=== PATIENT | female | born 1990 | race Caucasian/White ===

== ENCOUNTER 2022-08-18 08:10 | Emergency (ER) | payer BC ==
--- OUTSIDE RECORDS SUMMARY | 2022-08-18 08:15 | XMS REPORT | Continuity of Care Document ---
:1990 Author Organization [facility] t Address [address] [facility] [address] [place] [address] Care Team Providers Name Role Phone Billy Harvey DO Primary Care Physician Melvin George Attending Clinician Unavailable Jenna Duarte MD Attending Clinician [phone] Wes_Joni Attending Clinician Unavailable JENNA DUARTE Attending Clinician Unavailable Doctor Unassigned, Regal Attending Clinician Unavailable Ashley Floyd Attending Clinician Unavailable Tita Perez RN Attending Clinician Unavailable Dianne Canas MD Attending Clinician JENNA DUARTE Attending Clinician Unavailable NESS GUTIERREZ Attending Clinician Unavailable Billy Harvey Admitting Clinician Unavailable Melvin George Admitting Clinician Unavailable Pihazel_Joni Admitting Clinician Unavailable Ashley Floyd Admitting Clinician Unavailable NESS GUTIERREZ Admitting Clinician Unavailable Payers Payer Name Policy Type Policy Number Effective Date Expiration Date [id number] 2020 00:[place]00 [place] [id number] 2020 00:00:00 CIGNA III [id number] 2017 00:00:00 Problems Condition Condition Condition Status Onset Resolution Last Treating Co mments Source Name Details Category Date Date Treatment Clinician Date 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 0-03 ity of cell cell 00:00: [place] changes of changes of 00 Me dical undetermin undetermin Br anch ed ed significan significan ce (ASCUS) ce (ASCUS) on on cervical cervical cytology cytology with with negative negative high risk high risk human human papilloma papilloma virus virus (HPV) test (HPV) test result result Obstructiv Obstructiv Problem Active V illage e sleep e Sleep 7-15 Family apnea Apnea 00:00: Practic syndrome Syndrome 00 e Headache Headache Problem Active [place] ge 6-16 Family 00:00: Practic 00 e Snoring Snoring Problem Active [place] 6-16 Family 00:00: Practic 00 e Generalize Generalize Problem Active V illage d anxiety d Anxiety 16 Fami ly disorder Disorder 00:00: Practi c 00 e EKG: EKG: Problem Active [place] supraventr Supraventr 7-02 Fa marcus icular icular 00:00: Practic arrhythmia Arrhythmia 00 e Anxiety Anxiety Problem Active [place] attack Attack 7-02 Family 00:00: Practic 00 e SVT SVT Disease Recurre [facility] (supravent (supravent nce 3-07 Miguelina kes ricular ricular 00:00: Medical tachycardi tachycardi 00 Ce nter a) a) FHx: SVT FHx: SVT Disease Active 2016-03 [facility] di (supravent (supravent 1-20 st ricular ricular 00:00: Hospita tachycardi tachycardi 00 l a) a) Anxiety Anxiety Disease Active Methodi and and 4-10 st depression depression 00:00: Ho spita 00 l Weight Weight Disease Active [facility] gain gain 4-10 st 00:00: Hospita 00 l Allergen Allergen Problem Active 2015-03 [place] ge specific Specific 0-10 Family antibody Antibody 00:00: Practi c measuremen Measuremen 00 e t t Acute Acute Disease Active Univers sinusitis sinusitis 1-26 ity of 00:00: [place] 00 Medical Branch Anxiety Anxiety Disease Active Univers 7- ity of 00:00: [place] 00 Medical Branch Hyperventi Hyperventi Disease Active U nivers lation lation 7-02 ity of 00:00: Medical Branch Symptomati Symptomati Disease Active U nivers c c 6-28 ity of tonsillar tonsillar 00:00[place] crypt crypt 00 Medical [facility] Allergic Allergic Disease Active Overview: Un devin rhinitis rhinitis Formattin ity of g of this [place] note Medical might be Branch different from the original. 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, Disorder, predominan Predominan tly tly inattentiv Inattentiv e type e Type Allergies, Adverse Reactions, Alerts Allergy Allergy Status Severity Reaction(s) Onset Inactive Treating Comm ents Source Name Type Date Date Clinician No Known DA Active U [facility] Allergie 3-30 Clear s 00:00: Rubi 00 [place] Allergen Drug Active [facility]uffy [facility] Allergy 3-07 Nose, [facility] Extracts 00:00: Sneezing, Medic al 00 [facility] Eyes Dog Hair Drug Active Stuffy [facility] Standard Allergy 3-07 Nose, [facility] ized 00:00: Sneezing, Medical Allergen 00 [facility]chy Center ic Eyes Extract No Known DA Active U [facility] Allergie 1-23 [place] s 00:00: d 00 [facility] Pseudoep Allergy Active Mild Palpitations V illage hedrine to 1-23 Family substanc 00:00: Practic e 00 e No Known DA Active U [facility] Drug 9-18 [place] Allergie 00:00: d s 00 [facility] Center NO KNOWN Drug Active Univers ALLERGIE Class ity of S [place] Medical Branch Family History Family Member Diagnosis Comments Start Date Stop Date Source Natural father Diabetes [facility] Natural father Hy[facility] Maternal grandfather Heart [facility] Natural mother Diabetes [facility] Natural mother Hypertension [facility] Paternal grandmother Breast cancer [facility] Social History Social Habit Start Date Stop Date Quantity Comments Source Gender identity 2019-09-18 Identifies as Method ist 17:28:53 female gender Hospital (finding) Sexual orientation 2019-09-18 Heterosexual Meth odist 17:28:53 (finding) Hospital History SDOH [facility] Alcohol Frequency [facility] History SDOH [facility] Alcohol Std Drinks [facility] History SDOH [facility] Alcohol Binge Medical Luis A ter Exposure to 2021-10-31 2021-11-10 Not sure University of SARS-CoV-2 (event) 00:00:00 13:01:00 [facility] History of Social 2019-09-19 2019-09-[address] function 00:00:00 00:00:00 Hospital Alcohol intake 2018-05-18 2018-05-18 Current drinker of [facility] 00:[facility]:00 alcohol (finding) [facility] Center Tobacco use and 2018-05-17 2018-05-[address] Miguelina kes exposure 00:00:00 00:00:00 [facility] Center Alcohol Comment 2018-05-17 2018-05-[address] [facility] 00[facility]00:00 00:00:00 [facility] Center Sex Assigned At [address] Miguelina kes 00:00:00 00:00:00 [facility] Center Smoking Status Start Date Stop Date Source Never Smoker [place] [facility] Medications Ordered Filled Start Stop Current Ordering Indication Dosage Frequency Signature Comments Components Source Medication Medication Date Date Medication? Clinician (SIG) Name Name hydrOXYzine Yes 25mg Take 25 mg Univers 25 mg 8-31 by mouth ity of tablet 13:16: every 12 [place] [address] (twelve) Medical hours. Branch diclofenac Yes 75mg Take 75 mg U nivers 75 mg EC 8-31 by mouth. ity of tablet 13:16: [address] sertraline Yes Take by [facility] ers HCl (ZOLOFT 8-31 mouth. ity of ORAL) 13:16: [address] CLONAZEPAM Yes Take by [employer] ers ORAL 8-31 mouth. ity of 13:16: [address] hydrOXYzine Yes 25mg Take 25 mg Univers 25 mg 8-31 by mouth ity of tablet 13:16: every 12 [place] [address] (twelve) Medical hours. Branch diclofenac Yes 75mg Take 75 mg U nivers 75 mg EC 8-31 by mouth. ity of tablet 13:16: [address] sertraline Yes Take by [employer] ers HCl (ZOLOFT 8-31 mouth. ity of ORAL) 13:16: [address] Branch CLONAZEPAM Yes Take by Univ ers ORAL 8-31 mouth. ity of 13:16: [address] Branch betamethaso betamethaso No betamethas [place] ne acetate ne acetate 6-16 one Fam marilou and sodium and sodium 14:16: acetate Practic phos 6 phos 6 00 and sodium e mg/mL mg/mL phos 6 suspension suspension mg/mL for for suspension injectionTa injectionTa for ke 1.5 mL ke 1.5 mL injectionT by by sharon 1.5 mL injection injection by route. route. injection route. naproxen Yes 500mg Take 1 Univer s 500 mg 1-10 tablet by ity of tablet 00:00: mouth 3 [place] [address] (three) Medical times Branch daily as needed for Pain (scale 4-6). naproxen Yes 500mg Take 1 Univer s 500 mg 1-10 tablet by ity of tablet 00:00: mouth 3 [place] (three) Medical times Branch daily as needed for Pain (scale 4-6). benzonatate Yes TAKE 1 TO U nivers 100 mg 7-29 2 CAPSULES ity of capsule 00:00: BY MOUTH [place] [address] EVERY 8 Medical HOURS Branch NEEDED FOR COUGHING bromphenira Yes TAKE 10 ML Univers mine-pseudo 7-29 BY MOUTH ity of ephedrine-D 00:00: EVERY 4 [place] as M 2-30-10 00 HOURS Medica l mg/5 mL NEEDED, Branch syrup NOT TO EXCEED 6 DOSES A DAY. benzonatate Yes TAKE 1 TO U nivers 100 mg 7-29 2 CAPSULES ity of capsule 00:00: BY MOUTH [place] [address] EVERY 8 Medical HOURS Branch NEEDED FOR COUGHING bromphenira 0 Yes TAKE 10 ML Univers mine-pseudo 7-29 BY MOUTH ity of ephedrine-D 00:00: EVERY 4 [place] as M 2-30-10 00 HOURS Medica l mg/5 mL NEEDED, Branch syrup NOT TO EXCEED 6 DOSES A DAY. levothyroxi Yes Univer s ne 75 mcg 7-20 ity of tablet 00:00: [place] [address] Medical Branch levothyroxi 2021-0 Yes Univer s ne 75 mcg 7-20 ity of tablet 00:00: [place] 00 Medical Branch metFORMIN 0 Yes TAKE 2 Univer s 500 mg 6-09 TABLETS BY ity of tablet 00:00: MOUTH [place] 00 EVERY DAY Medical AND Branch CONTINUE UNTIL 12 WEEKS OF metFORMIN 0 Yes TAKE 2 Univer s 500 mg 6-09 TABLETS BY ity of tablet 00:00: MOUTH [place] 00 EVERY DAY Medical AND Branch CONTINUE UNTIL 12 WEEKS OF doxycycline Yes TAKE ONE Un devin monohydrate 6-08 (1) TABLET it y of 100 mg 00:00: BY MOUTH [place] tablet 00 TWICE Medical DAILY FOR Branch 7 DAYS, BEGIN WITH PERIOD medroxyPROG Yes TAKE ONE Un devin ESTERone 10 6-08 (1) TABLET it y of mg tablet 00:00: [place]OUTH [place] 00 DAILY FOR Medical 10 DAYS Branch doxycycline Yes TAKE ONE Un devin monohydrate 6-08 (1) TABLET it y of 100 mg 00:00: BY MOUTH [place] tablet 00 TWICE Medical DAILY FOR Branch 7 DAYS, BEGIN WITH PERIOD medroxyPROG Yes TAKE ONE Un devin ESTERone 10 6-08 (1) TABLET it y of mg tablet 00:00: BY MOUTH [place] 00 DAILY FOR Medical 10 DAYS Branch cetirizine Yes 10mg Take 10 mg U nivers (ZYRTEC) 10 5-07 by mouth ity of mg tablet 13:22: daily. [address] Branch omeprazole Yes Take by [facility] magnesium 5-07 mouth. ity of (PRILOSEC) 13:22: [place] [address] Branch cetirizine Yes 10mg Take 10 mg U nivers (ZYRTEC) 10 5-07 by mouth ity of mg tablet 13:22: daily. [address] Branch omeprazole Yes Take by [facility] magnesium 5-07 mouth. ity of (PRILOSEC) 13:22: [place] [address] Branch valACYclovi Yes TAKE TWO Un devin r 1 gram 4-30 TABLETS ity of tablet 00:00: 2GM BY [place] 00 MOUTH Medical EVERY 12 Branch HOURS X1 DAY valACYclovi Yes TAKE TWO Un devin r 1 gram 4-30 TABLETS ity of tablet 00:00: 2GM BY [place] [address] MOUTH Medical EVERY 12 Branch HOURS X1 DAY norgestimat 2020-0 Yes [id number] Take one Methodi e-ethinyl 7-[address] estradioL 00:00: mouth Hospita (ORTHO-CYCL 00 daily, l EN) 0.25-35 skip mg-mcg per placcebo tablet row months 1-2 then take full pack on month 3 norgestimat 2019-0 Yes [id number] Take one Methodi e-ethinyl 7-[address] estradioL 00:00: mouth Hospita (ORTHO-CYCL 00 daily, l EN) 0.25-35 skip mg-mcg per placcebo tablet row months 1-2 then take full pack on month 3 norgestimat 2020-0 Yes [id number] Take one Methodi e-ethinyl 7-[address] estradioL 00:00: mouth Hospita (ORTHO-CYCL 00 daily, l EN) 0.25-35 skip mg-mcg per placcebo tablet row months 1-2 then take full pack on month 3 norgestimat 2020-0 Yes [id number] Take one Methodi e-ethinyl 7-[address] estradioL 00:00: mouth Hospita (ORTHO-CYCL 00 daily, l EN) 0.25-35 skip mg-mcg per placcebo tablet row months 1-2 then take full pack on month 3 naproxen 2019-0 Yes [id number] 250mg Q.[id number] Take 1 Methodi (NAPROSYN) 4-14 [id number] tablet s t 250 MG 00:00: 3D (250 mg Hospita tablet 00 total) by l mouth 3 (three) times a day with meals. naproxen 2020-0 Yes [id number] 250mg Q.[id number] Take 1 Methodi (NAPROSYN) 4-14 [id number] tablet s t 250 MG 00:00: 3D (250 mg Hospita tablet 00 total) by l mouth 3 (three) times a day with meals. naproxen 2020-0 Yes [id number] 250mg Q.[id number] Take 1 Methodi (NAPROSYN) 4-14 [id number] tablet s t 250 MG 00:00: 3D (250 mg Hospita tablet 00 total) by l mouth 3 (three) times a day with meals. naproxen 2019-0 Yes [id number] 250mg Q.[id number] Take 1 Methodi (NAPROSYN) 4-14 [id number] tablet s t 250 MG 00:00: 3D (250 mg Hospita tablet 00 total) by l mouth 3 (three) times a day with meals. levonorgest 2019-0 Yes 1{tbl} QD Take [address] rel-ethinyl 3-07 tablet by Marck es estradiol 20:37: mouth Medical (DAYSEE) 42 daily. Center 0.15 mg-30 mcg (84)/10 mcg (7) tablet diclofenac 2018-0 Yes 75mg Q.[id number] Take [address] (VOLTAREN) 3-07 [id number] by mouth 3 [facility] 75 MG EC 20:37: 3D (three) Medica l tablet 42 times Center daily Pt usually takes just once daily . cetirizine Yes 10mg QD Take [address] (ZYRTEC) 10 3-07 by mouth Luke s MG tablet 20:37: daily. Medica l 42 Center levonorgest 2018-0 Yes 1{tbl} QD Take [address] rel-ethinyl 3-07 tablet by Marck es estradiol 20:37: mouth Medical (DAYSEE) 42 daily. Center 0.15 mg-30 mcg (84)/10 mcg (7) tablet diclofenac 2018-0 Yes 75mg Q.[id number] Take [address] (VOLTAREN) 3-07 [id number] by mouth 3 [facility] 75 MG EC 20:37: 3D (three) Medica l tablet 42 times Center daily Pt usually takes just once daily . cetirizine 2019-0 Yes 10mg QD Take [address] (ZYRTEC) 10 3-07 by mouth Luke s MG tablet 20:37: daily. Medica l 42 Center levonorgest 2019-0 Yes 1{tbl} QD Take [address] rel-ethinyl 3-07 tablet by Marck es estradiol 20:37: mouth Medical (DAYSEE) 42 daily. Center 0.15 mg-30 mcg (84)/10 mcg (7) tablet diclofenac 2019-0 Yes 75mg Q.[id number] Take [address] (VOLTAREN) 3-07 [id number] by mouth 3 [facility] 75 MG EC 20:37: 3D (three) Medica l tablet 42 times Center daily Pt usually takes just once daily . cetirizine Yes 10mg QD Take [address] (ZYRTEC) 10 3-07 by mouth Luke s MG tablet 20:37: daily. [address] levonorgest Yes 1{tbl} QD Take [address] rel-ethinyl 3-07 tablet by Marck es estradiol 20:37: mouth Medical (DAYSEE) 42 daily. [place] 0.15 mg-30 mcg (84)/10 mcg (7) tablet diclofenac Yes 75mg Q.[id number] Take [address] (VOLTAREN) 3-07 [id number] by mouth 3 [facility] 75 MG EC 20:37: 3D (three) Medica l tablet 42 times Center daily Pt usually takes just once daily . cetirizine Yes 10mg QD Take [address] (ZYRTEC) 10 3-07 by mouth Luke s MG tablet 20:37: daily. [address] ondansetron Yes [id number] 4mg Take 1 Univers (ZOFRAN) 4 1-22 tablet by ity of mg tablet 00:00: mouth [place] 00 every 8 Medical (eight) Branch hours as needed for Nausea and Vomiting (N/V). ondansetron Yes [id number] 4mg Take 1 Univers (ZOFRAN) 4 1-22 tablet by ity of mg tablet 00:00: mouth [place] 00 every 8 Medical (eight) Branch hours as needed for Nausea and Vomiting (N/V). fluticasone Yes Method i (FLONASE) 05-27 00:00: Hospita mcg/actuati 00 l on nasal spray fluticasone Yes Method i (FLONASE) 05-27 00:00: Hospita mcg/actuati 00 l on nasal spray fluticasone Yes Method i (FLONASE) 05-27 00:00: Hospita mcg/actuati 00 l on nasal spray fluticasone Yes Method i (FLONASE) 3-17 st 50 00:00: Hospita mcg/actuati 00 l on nasal spray fluticasone Yes [id number] 2{spray Use 2 Univers (FLONASE) 1-26 } Sprays in ity o f 50 00:00: each [place] mcg/actuati 00 nostril Medic al on nasal daily. Branch spray fluticasone Yes [id number] 2{spray Use 2 Univers (FLONASE) 1-26 } Sprays in ity o f 50 00:00: each [place] mcg/actuati 00 nostril Medic al on nasal daily. Branch spray valACYclovi Yes 500mg Take 1 Tab Univers r (VALTREX) 1-03 by mouth 2 it y of 500 mg 00:00: (two) [place] tablet 00 times Medical daily. Branch valACYclovi Yes 500mg Take 1 Tab Univers r (VALTREX) 1-03 by mouth 2 it y of 500 mg 00:00: (two) [place] tablet 00 times Medical daily. [place] betamethaso betamethaso No 1.5mL betamethas [facility] ne acetate ne acetate one Fam marilou and sodium and sodium acetate Practic phos 6 phos 6 and sodium e mg/mL mg/mL phos 6 suspension suspension mg/mL for for suspension injection injection for Take 1.5 mL Take 1.5 mL injection by by Take 1.5 injection injection mL by route. route. injection route. diphenhydra diphenhydra No 1capsul Q4H diphenhydr [facility] mine 25 mg mine 25 mg e(s) amine 25 Family capsule capsule mg capsule Pra ctic Take 1 Take 1 Take 1 e capsule capsule capsule every 4 every 4 every 4 hours by hours by hours by oral route. oral route. oral route. Klonopin 1 Klonopin 1 No 1 Q1D Klonopin 1 [place] mg tablet mg tablet mg tablet Family Take 1 Take 1 Take 1 Practic tablet tablet tablet e every day every day every day by oral by oral by oral route as route as route as needed. needed. needed. levothyroxi levothyroxi No 1 Q1D levothyrox [facility] ne 75 mcg ne 75 mcg ine 75 mcg Family tablet Take tablet Take tablet Practic 1 tablet 1 tablet Take 1 e every day every day tablet by oral by oral every day route. route. by oral route. metformin metformin No 1 Q1D metformin [facility] 500 mg 500 mg 500 mg Family tablet Take tablet Take tablet Practic 1 tablet 1 tablet Take 1 e every day every day tablet by oral by oral every day route. route. by oral route. naproxen naproxen No naproxen [facility] No [facility] sertraline sertraline No .5 Q1D sertraline [facility] 25 mg 25 mg 25 mg Family tablet Take tablet Take tablet Practic 0.5 tablets 0.5 tablets Take 0.5 e every day every day tablets by oral by oral every day route. route. by oral route. Vitamin D3 Vitamin D3 No Vitamin D3 [facility] 125 mcg 125 mcg 125 mcg Family (5,000 (5,000 (5,000 Practic unit) unit) unit) e tablet Take tablet Take tablet by oral by oral Take by route. route. oral route. Klonopin 1 Klonopin 1 No 1 Q1D Klonopin 1 [place] mg tablet mg tablet mg tablet Family Take 1 Take 1 Take 1 Practic tablet tablet tablet e every day every day every day by oral by oral by oral route as route as route as needed. needed. needed. levothyroxi levothyroxi No levothyrox [facility] ne 75 mcg ne 75 mcg ine 75 mcg Family tablet TAKE tablet TAKE tablet Practic 1 TABLET BY 1 TABLET BY TAKE 1 e MOUTH EVERY MOUTH EVERY TABLET BY DAY DAY MOUTH EVERY DAY naproxen naproxen No naproxen [facility] darrell 500 mg 500 mg 500 mg Family tablet tablet tablet Practic e sertraline sertraline No sertraline [facility] 25 mg 25 mg 25 mg Family tablet TAKE tablet TAKE tablet Practic 1 TABLET BY 1 TABLET BY TAKE 1 e MOUTH EVERY MOUTH EVERY TABLET BY DAY DAY MOUTH EVERY DAY Immunizations Ordered Filled Immunization Date Status Comments [facility] e Immunization Name Name SARS-COV-2 COVID-19 2020-04-13 Completed Unive rsity of MODERNA VACCINE 00:00:00 [facility] Branch SARS-COV-2 COVID-19 2020-04-13 Completed Unive rsity of MODERNA 12+ YRS 00:00:00 [facility] VACCINE Branch SARS-COV-2 COVID-19 2020-03-13 Completed Unive rsity of MODERNA VACCINE 00:00:00 [facility] SARS-COV-2 COVID-19 2020-03-13 Completed Unive rsity of MODERNA 12+ YRS 00:00:00 [facility] ical VACCINE Branch Influenza, Influenza, 2018-01-09 Completed [facility] injectable, MDCK, injectable, MDCK, 00:00:00 Practice quadrivalent quadrivalent Influenza, Influenza, 2018-01-09 Completed [facility] Family injectable, MDCK, injectable, MDCK, 00:00:00 Practice quadrivalent quadrivalent Influenza Virus 2012-01-09 Completed Universit y of Vaccine 00:00:00 [facility] Influenza Virus 2012-01-09 Completed Universit y of Vaccine 00:00:00 [facility] HEPATITIS A 2005-03-01 Completed University of 00:00:00 [facility] HEPATITIS A 2005-03-01 Completed University of 00:00:00 [facility] HEPATITIS A 2004-05-10 Completed University of 00:00:00 [facility] HEPATITIS A 2004-05-10 Completed University of 00:00:00 [facility] Vital Signs Vital Name Observation Time Observation Value Comments Source BP Diastolic 2021-11-29 00:00:00 72 mm[Hg] [facility] Height 2021-11-29 00:00:00 66.5 [in_i] [facility] BMI (Body Mass 2021-11-29 00:00:00 42.3 kg/m2 [facility]) Practice BP Systolic 2021-11-29 00:00:00 128 mm[Hg] [facility] Body Weight 2021-11-29 00:00:00 266 [lb_av] [facility] Systolic blood 2021-11-10 18:17:00 113 mm[Hg] Univer sity of pressure [facility] Diastolic blood 2021-11-10 18:17:00 78 mm[Hg] Unive rsity of pressure [facility] Heart rate 2021-11-10 18:17:00 99 /min [facility] Body temperature 2021-11-10 18:17:00 36.78 [facility] ersity of [facility] Body height 2021-11-10 18:17:00 167.6 cm [facility] Body weight 2021-11-10 18:17:00 122.789 kg [facility] BMI 2021-11-10 18:17:00 43.69 kg/m2 [facility] BP Diastolic 2021-08-26 00:00:00 89 mm[Hg] [facility] Practice Height 2021-08-26 00:00:00 66.5 [in_i] [facility] Practice BMI (Body Mass 2021-08-26 00:00:00 47.9 kg/m2 [facility] Family Index) Practice BP Systolic 2021-08-26 00:00:00 126 mm[Hg] [facility] Body Weight 2021-08-26 00:00:00 301.2 [lb_av] [facility] Procedures Procedure Date / Time Performed Performing Clinician [facility] carmel [id number] 2021-10-26 00:00:[address] [facility] home sleep study 2021-08-26 00:00:00 [facility] marilou Practice [id number] 2021-06-11 00:00:[address] [facility] [id number] 2021-06-11 [facility]:00[facility] [facility] Plan of Care Planned Activity Planned Date Details Comments Source Future Scheduled 2022-07-22 COVID-19 VACCINE [facility] Test 04:05:29 (#1) [code = COVID-19 VACCINE (#1)] Future Scheduled 2022-07-22 Screening for [facility] Test 04:05:29 malignant neoplasm of cervix (procedure) [code = 136534346] Future Scheduled 2022-07-22 INFLUENZA VACCINE [facility] Test 04:05:29 [code = INFLUENZA VACCINE] Future Scheduled 2022-02-26 COVID-19 VACCINE [facility] Test 01:48:30 (#1) [code = COVID-19 VACCINE (#1)] Future Scheduled 2022-02-26 INFLUENZA VACCINE [facility] Test 01:48:30 [code = INFLUENZA VACCINE] Future Scheduled 2022-02-26 Screening for [facility] Test 01:48:30 malignant neoplasm of cervix (procedure) [code = 710751025] Future Scheduled 2022-01-15 COVID-[address] [facility] Test 14:08:22 (#1) [code = COVID-19 VACCINE (#1)] Future Scheduled 2022-01-15 INFLUENZA VACCINE [facility] Test 14:08:22 [code = INFLUENZA VACCINE] Future Scheduled 2022-01-15 Screening for [facility] Test 14:08:22 malignant neoplasm of cervix (procedure) [code = 198459384] Future Scheduled 2021-11-11 COVID-[address] [facility] Test 17:08:09 (#1) [code = COVID-19 VACCINE (#1)] Future Scheduled 2021-11-11 INFLUENZA VACCINE [facility] Test 17:08:09 [code = INFLUENZA VACCINE] Future Scheduled 2021-11-11 Screening for [facility] Test 17:08:09 malignant neoplasm of cervix (procedure) [code = 573822956] Encounters Start End Encounter Admission Attending Care Care Encounter Source Date/Time Date/Time Type Type Clinicians Facility Department ID 2021-12-11 Inpatient EL Du, Melvin [facility] DIAB [id number] [facility] 05:23:00 82 [facility] 2021-10-26 Inpatient EL Du, Melvin [facility] MEDI.01 [id number] [facility] 07:30:00 [id number] [facility] 2021-09-10 Inpatient EL Du, Melvin [facility] DIAB [id number] [facility] 22:46:00 83 [facility] 2022-05-02 2022-05-02 Outpatient EL Du, Melvin [facility] DIAB [id number] [facility] 10:00:00 10:00:00 49 [facility] 2022-01-24 2022-01-24 Outpatient EL Du, Melvin HCACL DIAB [id number] [facility] 10:30:00 10:30:00 51 [facility] 2021-12-14 2021-12-14 Telephone [facility] 1.2.840.114 [id number] [facility] 00:00:00 00:00:00 Jenna Marino WOMEN'S 350.1.13.10 [facility] 4.2.7.2.686 Te [place] E GROUP [phone] [facility] [place] [address] [place] 2021-11-29 2021-12-10 Outpatient EL Du, Melvin HCACL DIAB [id number] [facility] 10:00:00 00:00:00 94 [facility] 2021-11-29 2021-11-29 Outpatient Piazza_D VFP VFP [id number] 7-20 [facility] 00:00:00 00:00:00 [id number] Family Practic e 2021-11-29 2021-11-29 Billy [facility] [place] - [id number] V illage 00:00:00 00:00:00 Job Harvey DO: 7111 Medical - Pract ic Medical VM_[facility] [address], [address], [place] [address] , Ph. 2021-11-22 2021-11-22 Outpatient Wes_Joni [facility] [id number] 7-20 [facility] 00:00:00 00:00:00 [id number] Practic e 2021-11-10 2021-11-10 Office Yi [facility] 1.2.840.114 [id number] Univers 13:00:00 13:40:34 Visit Jenna Marino WOMEN'S 350.1.13.10 ity of [facility] 4.2.7.2.686 Te sasha E GROUP [phone] [address] [place] 2021-11-10 2021-11-10 Outpatient R YI, [facility] 1034 [id number] Univers 13:00:00 13:40:34 [facility] 2021-11-10 2021-11-10 Outpatient R YI [facility] 1034 [id number] Univers 13:00:00 13:40:34 JENNA [facility] 2021-11-10 2021-11-10 Outpatient R YI [facility] 1034 [id number] Univers 13:00:00 13:00:00 JENNA [facility] 2021-11-10 2021-11-10 Outpatient R YI [facility] [id number] Univers 13:00:00 13:00:00 [facility] 2021-11-10 2021-11-10 Orders Doctor ARZOLA 1.2.840.114 [id number] Univers 00:00:00 00:00:00 Only Unassigned, BEATRIZ 350.1.13.10 ity of [facility] 4.2.7.2.686 Jayden as [phone] Medi avelina [address] 2021-11-08 2021-11-08 Outpatient Kelsi DUARTE [facility] 1034 [id number] Univers 13:00:00 13:00:00 JENNA hodge of [facility] 2021-10-26 2021-10-26 Inpatient Melvin Worrell [facility] MEDI.01 [id number] [facility] 05:41:00 18:15:00 91 [facility] 2021-08-30 2021-09-09 Outpatient ANNIE George Melvin [facility] DIAB [id number] [facility] 13:00:00 00:00:00 87 [facility] 2021-08-26 2021-08-26 Outpatient Piazza_D VFP VFP [id number] 7-20 Village 03:07:00 03:07:00 [id number] Family Practic e 2021-08-26 2021-08-26 Erika Paez VFP [place] - [id number] Village 00:00:00 00:00:00 [facility] Ronal nava MD: 7111 Medical - Pract Medical _HOU_[facility] [address], [address], [place] [address] , Ph. 2021-08-18 2021-08-18 Outpatient Piazza_D VFP VFP [id number] 7-20 Village 04:20:00 04:20:00 [id number] Family Practic e 2021-07-09 2021-07-09 Kristy Duarte [facility] 1.2.840.114 [id number] [facility] 00:00:00 00:00:00 Jenna Marino WOMEN'S 350.1.13.10 [facility] [place]2.7.2.686 [place] [phone] Medi avelina [place] [address] [place] 2021-06-11 2021-06-11 Inpatient ANNIE Floyd [facility] MEDI.01 [id number] [facility] 09:53:00 20:00:00 Ashley 60 [facility] 2021-05-05 2021-05-05 Orders Doctor ARZOLA 1.2.840.114 [id number] Univers 00:00:00 00:00:00 Only Unassigned, BEATRIZ 350.1.13.10 ity of [facility] 4.2.7.2.686 Jayden as [phone] Medi avelina [address] 2021-03-08 2021-03-08 [facility] 1.2.840.114 [id number] Univers 00:00:00 00:00:00 Jenna A WOMEN'S 350.1.13.10 ity of [facility] [place].7.2.686 [place] [phone] Medi avelina [place] [address] [place] [address] 2020-11-18 2020-11-18 Telephone [facility] 1.2.840.114 [id number] Univers 00:00:00 00:00:00 Jenna A Women's 350.1.13.10 ity of [facility] [place].2.7.2.686 [place] [phone] Medi avelina in [address] [place] [address] 2020-11-17 2020-11-17 Orders Doctor ARZOLA 1.2.840.114 [id number] Univers 00:00:00 00:00:00 Only Unassigned, BEATRIZ 350.1.13.10 ity of [facility] 4.2.7.2.686 Jayden as [phone] Medi avelina [address] [place] [address] 2020-10-29 2020-10-29 Letter [facility] 1.2.840.114 [id number] Univers 00:00:00 00:00:00 (Out) Jenna A Women's 350.1.13.10 ity of [facility] [place]2.7.2.686 [place] [phone] Medi avelina in [address] [place] [address] 2020-10-26 2020-10-26 Office [facility] 1.2.840.114 [id number] Univers 13:11:53 14:02:27 Visit Jenna A Women's 350.1.13.10 ity of [facility] 4.2.7.2.686 [place] [id number] Medi avelina in [address] [place] [address] 2020-10-26 2020-10-26 Outpatient Kelsi [facility] 1034 [id number] Univers 13:30:00 13:30:00 JENNA floresfaisal [facility] 2020-10-26 2020-10-26 Letter Doctor NESS 1.2.840.114 [id number] Univers 00:00:00 00:00:00 (Out) Unassigned, BEATRIZ 350.1.13.10 ity of [place] [facility] 4.2.7.2.686 Jayden as [phone] [address] 2020-09-30 2020-09-30 Outpatient Kelsi [facility] [id number] Univers 16:15:00 16:15:00 JENNA hodge [facility] 2020-09-27 2020-09-27 Pre Visit Quita Perez 1.2.497.474 [id number] Univers 00:00:00 00:00:00 Outreach Tita Mota 350.1.13.10 ity of [place]2.7.2.686 [place] [phone] [facility] [address] [place] [address] 2020-07-30 2020-07-30 Telephone [facility] 1.2.840.114 [id number] Univers 00:00:00 00:00:00 Dianne Kelsi Women's 350.1.13.10 it y of [facility] 4.2.7.2.686 [place] [phone] [facility] avelina in [address] [place] [address] 2020-07-21 2020-07-21 Telephone [facility] 1.2.840.114 [id number] Univers 00:00:00 00:00:00 Jenna A Vivien's 350.1.13.10 ity of [facility] 4.2.7.2.686 [place] [phone] Medi avelina in [address] [place] [address] 2020-07-17 2020-07-17 Office [facility] 1.2.456.160 [id number] Univers 13:04:21 15:05:07 Visit Dianne Dolan Women's 350.1.13.10 it y of [facility] 4.2.7.2.686 Te sasha burt Group [phone] [facility] in [address] Friendswo od 2020-07-17 2020-07-17 Outpatient Kelsi AVELINALISAASHLEY [facility] [id number] [facility] 13:00:00 13:00:00 DIANNE hodge [facility] 2019-09-19 2019-09-19 Outpatient CLONINGER, [facility] [id number] [place] 00:00:00 00:00:00 JENNA [address] 2019-06-25 2019-06-25 Outpatient CLONINGER, [facility] 2099 [id number] [place] 00:00:00 00:00:00 JENNA [address] 2019-06-20 2019-06-20 Outpatient [facility] [id number] [place] 00:00:00 00:00:[address] Results Test Description Test Time Test Comments Results Result Comments Source COMPREHENSIVE METABOLIC PANEL 2021-10-29 12:10:00 Test Item Value Reference Range Interpretation Comme nts SODIUM (test code = NA) 139 mEq/L 134-147 N POTASSIUM (test code = K) 4.2 mEq/L 3.4-5.0 N CHLORIDE (test code = CL) 107 mEq/L 100-108 N CARBON DIOXIDE (test code = CO2) 27 mEq/l 21-33 N ANION GAP (test code = GAP) 9 0-20 N GLUCOSE (test code = GLU) 99 mg/dL 70-110 N BLOOD UREA NITROGEN (test code = 13 mg/dL 7-18 N BUN) GLOMERULAR FILTRATION RATE (test 119.0 110-120 N Units of measure = code = GFR) ml/min/1.73 m2 CREATININE (test code = CREAT) 0.6 mg/dL 0.6-1.3 N TOTAL PROTEIN (test code = PROT) 6.9 g/dL 6.4-8.2 N ALBUMIN (test code = ALB) 4.10 g/dL 3.4-5.0 N CALCIUM (test code = CA) 9.4 mg/dL 8.0-10.5 N BILIRUBIN TOTAL (test code = BILT) 0.40 mg/dL 0.0-1.0 N SGOT/AST (test code = AST) 28 IUnit/L 15-37 N SGPT/ALT (test code = ALT) 44 IUnit/L 30-65 N ALKALINE PHOSPHATASE TOTAL (test 77 IUnit/L 20-125 N code = ALKP) Indication for Test: Malabsorption/MalnutritioSERUM [id number] 12:10:00 Test Item Value Reference Range Interpretation Comments SERUM IRON (test code = IRON) 26 mcg/dL 35-150 L Indication for Test: Malabsorption/MalnutritioVITAMIN [id number] 12:10:00 Test Item Value Reference Range Interpretation Comments VITAMIN B12 (test code = VITB12) 620 pg/mL 193-986 N Indication for Test: Malabsorption/MalnutritioTHYROID STIMULATING HORMONE 2021-10-29 12:10:00 Test Item Value Reference Range Interpretation Comments THYROID STIMULATING 0.42 0.42-5.47 N Results in HORMONE (test code = TSH) mi lli-International Units/mL Indication for Test: Malabsorption/MalnutritioVIT B1 WHOLE [id number] 12:10:00 Test Item Value Reference Range Interpretation Comments VIT B1 WHOLE BLOOD 156.3 nmol/L 66.5-200.0 Performed At: (test code = [facility] [id number]) [place], [place] [id number] bassam Springer MD Ph:[phone] Indication for Test: Malabsorption/MalnutritioVITAMIN D 38-[id number] 12:10:00 Test Item Value Reference Range Interpretation Comments VITAMIN D 25-HYDROXY (test code = 36.5 ng/mL 30-100 N VITD25) Indication for Test: Malabsorption/[id number] 12:29:00 Test Item Value Reference Range Interpretation Comments SURGICAL (test code = SR) -----RUN DATE: 10/28/21 [facility] PAGE 1 RUN TIME: 1230 Specimen Inquiry RUN USER: INTERFACE -----PATIENT: MONI SCHULER LOC: ROMINA U #: [id number] AGE/SX: 30/F [facility] DR: Melvin George MD : 92 BED: 6 DIS: 10/26/21 STATUS: DIS IN TLOC: ----- SPEC #: [id number] RECD: 10/27/21 STATUS: JOHN ESPINO #: [id number] DIPAK: 10/26/21- SUBM DR: Melvin George MD ENTERED: 10/27/21 SP TYPE: SURGICAL OTHR DR: Billy Harvey DO ORDERED: [id number], ANATOMIC SPEC COPIES TO: Melvin George MD [address] [place] [address] [address] [place], [place] [address] Billy Harvey DO [address] [place] [address] [address] [place] [address] PROCEDURES: [id number] (10/27/21) TISSUES: A. STOMACH SUBTOTAL / TOTAL RESECTION NOT TUMOR/SLEEVE CLINICAL HISTORY SAME FINAL DIAGNOSIS Stomach, partial gastrectomy:Generally unremarkable gastric mucosa.No dysplasia or malignancy identified.Surgical margins are viable. GROSS DESCRIPTION The specimen received in formalin in a container labeled with the patient's name anddesignated stomach consists of a gastrectomy specimen that measures 20 cm in length and upto 3 cm in diameter. The specimen is previously opened. The staple line is then removedand the specimen is then completely opened to reveal normal rugal folds. No mass lesionsare identified. Luggage Repairer sections of the gastric mucosa are submitted in cassette A.Luggage Repairer sections of the staple line are submitted in cassette B. Technical component performed at [facility],[address] [place] [address], [place] [address] Unless gross only, the diagnosis is based upon microscopic examination.Immunohistochemis try: This test was developed and its performance characteristics CONTINUED ON NEXT PAGE -----RUN DATE: 10/28/21 [place] - LAB PAGE 2 RUN TIME: 1230 Specimen Inquiry RUN USER: INTERFACE -----SPEC #: [id number] PATIENT: MONI SCHULER #[id number] (Continued) GROSS DESCRIPTION (Continued) determined by this laboratory. It has not been approved nor does it need approvalby the [place] FDA. Appropriate positive and negative controls are reviewed and judgedto be acceptable. This laboratory is certified under the Clinical Laboratory ImprovementAmendments (CLIA-88) as qualified to perform high complexity clinical laboratory testing. MICROSCOPIC DESCRIPTION A microscopic examination was performed. CLINICAL INFORMATION BMI 45-49, MORBID OBESITY, DIABETES, GERD, HYPOTHYROID, PCOS --------- Signed SIGNATURE ON FILE Charlie Manning 10/28/21 1229 ----- END OF REPORT UR NICOTINE [id number] 09:12:00 Test Item Value Reference Range Interpretation Comments UR NICOTINE QUAL (test code = Negative ng/mL Jnxuro=733 NICU) GLUCOSE [id number] 08:55:00 Test Item Value Reference Range Interpretation Comments GLUCOSE BEDSIDE (test 95 MG/DL 70-110 N [facility] med by certified code = GLUBED) bending press operator at [facility] HCG SERUM [id number] 10:35:00 Test Item Value Reference Range Interpretation Comments HCG SERUM QUAL (test code = SERUM NEGATIVE NEGATIVE HCGQL) HGBA1C%2021-10-22 10:35:00 Test Item Value Reference Range Interpretation Comments HGBA1C% (test code = HGBA1C%) 5.5 %A1C 4.8-6.0 N PROTHROMBIN [id number] 09:46:00 Test Item Value Reference Range Interpretation Comments PROTHROMBIN TIME 12.2 SECONDS 9.3-12.9 N PATIENT (test code = PTP) INTERNATIONAL NORMAL 1.1 0.8-1.2 N TARGET INR BY RATIO (test code = INDICATIO N Indication INR) INR1. Prophylax is of venous thrombos is 2.0 - 3.0 (orthoped ic surgery), Proph ylaxis of venous throm bosis (other than hig h-risk surgery), Treat ment of Deep Vein Thrombosis/Pulm onary Embolism, Preve ntion of systemic emb olism - Tissue heart va lves, Acute Myocardia l Infarction (to prevent systemic emboli sm), Valvular heart disease, Atrial Fibrillation, Bileaflet mecha nical valve in aortic position.2. Mec hanical prosthetic valv es (high risk), 2. 5 - 3.5 Presence of Lup us Anticoagulant o r Antiphospholipi d Antibodies, Pre vention of systemic emb olism - Acute Myocardia l Infarction (to prevent recurrent infar ct). THROMBOPLASTIN TIME [id number] 09:46:00 Test Item Value Reference Range Interpretation Comments THROMBOPLASTIN TIME 38.3 Seconds 25.0-39.5 N Therape utic Range: PARTIAL (test code = 50.4 - 88.3 Seconds PTT) Effective 06/26/2018 CBC W/AUTO [id number] 09:33:00 Test Item Value Reference Range Interpretation Comments WHITE BLOOD CELL (test code = 7.8 x10 3/uL 4.5-11.0 N WBC) RED BLOOD CELL (test code = 4.60 x10 6/uL 3.54-5.02 N RBC) HEMOGLOBIN (test code = HGB) 11.7 g/dL 11.0-15.0 N HEMATOCRIT (test code = HCT) 37.0 % 33.0-45.0 N MEAN CELL VOLUME (test code = 80.4 fL 81.0-99.0 L MCV) MEAN CELL HGB (test code = MCH) 25.4 pg 27.0-33.0 L MEAN CELL HGB CONCETRATION 31.6 g/dL 33.0-37.0 L (test code = MCHC) RED CELL DISTRIBUTION WIDTH CV 13.6 % 11.5-14.5 N (test code = RDW) RED CELL DISTRIBUTION WIDTH SD 39.7 fL 37.0-54.0 N (test code = RDW-SD) PLATELET COUNT (test code = 382 x10 3/uL 150-400 N PLT) MEAN PLATELET VOLUME (test code 9.9 fL 7.0-9.0 H = MPV) NEUTROPHIL % (test code = NT%) 60.3 % 56.0-77.0 N IMMATURE GRANULOCYTE % (test 0.3 % 0.0-2.0 N code = IG%) LYMPHOCYTE % (test code = LY%) 29.9 % 14.0-32.0 N MONOCYTE % (test code = MO%) 7.0 % 4.8-9.0 N EOSINOPHIL % (test code = EO%) 1.9 % 0.3-3.7 N BASOPHIL % (test code = BA%) 0.6 % 0.0-2.0 N NUCLEATED RBC % (test code = 0.0 % 0-0 N NRBC%) NEUTROPHIL # (test code = NT#) 4.72 x10 3/uL 2.0-7.6 N IMMATURE GRANULOCYTE # (test 0.02 x10 3/uL 0.00-0.03 N code = IG#) LYMPHOCYTE # (test code = LY#) 2.34 x10 3/uL 1.0-3.8 N MONOCYTE # (test code = MO#) 0.55 x10 3/uL 0.1-0.8 N EOSINOPHIL # (test code = EO#) 0.15 x10 3/uL 0.0-0.2 N BASOPHIL # (test code = BA#) 0.05 x10 3/uL 0.0-0.2 N NUCLEATED RBC # (test code = 0.00 x10 3/uL 0.0-0.1 N NRBC#) MANUAL DIFF REQUIRED (test code NO = MDIFF) - XR CHEST 2 [id number] 00:00:00 [facility] MONI SCHULER : 1990 Sex: F FAX:Melvin George MD [phone] [place]: St: PRE Name: MONI SCHULER [facility] : 1990 Age/S: 30/F [address] [place] [address] Unit #: [id number] Loc: [place] [address] Phys: Melvin George MD Acct: [id number] Dis Date: Status: PRE IN PHONE #: [phone] Exam Date: 10/22/2021 0853 FAX #: [phone] Reason: PREOP EXAMS: CPT CODE: [id number] XR CHEST 2 V [id number] PROCEDURE INFORMATION: Exam: XR Chest Exam date andtime: 10/22/2021 8:52 AM Age: 30 years old Clinical indication: Screening exam; Pre-operative exam; Other: Preop TECHNIQUE: Imaging protocol: Radiologic exam of the chest. Views: 2 views. PA and Lateral COMPARISON: No relevant prior studies available. FINDINGS: Lungs: There are normal lung volumes without consolidation or interstitial oppacities. Pleural spaces: Unremarkable. No pleural effusion. No pneumothorax. Heart/Mediastinum: The cardiac silhouette is not enlarged. Bones/joints: No acute abnormality seen. IMPRESSION: No acute cardiopulmonary findings. at 1003 Reported and signed by: Hiro Serrano M.D. CC:Melvin George MD Technologist: Dena Bowden, RT(R) Trnscrd Date/Time/By: 10/22/2021 (1003) : By: [email or web address] Orig Print D/T: S: 10/22/2021 (1003) PAGE 1 Signed [id number] 11:33:00 Test Item Value Reference Range Interpretation Comments SURGICAL (test code = SR) R UN DATE: 06/15/21 [place] - LAB PAGE 1 RUN TIME: 1133 Specimen Inquiry RUN USER: INTERFACE P ATIENT: MONI SCHULER LOC: ROMINA U #: [id number] AGE/SX: 30/ ROOM: [place] RE06/11/21REG DR: Ashley Floyd MD : [birth year] BED: 3 DIS: 06/11/21 STATUS: DIS IN TLOC: SPEC #: [id number] RECD: 06/14/21-1402 STATUS: JOHN REQ #: [id number] DIPAK: 06/11/21- SUBM DR: Ashley Floyd MD ENTERED: 06/14/21-140 SP TYPE: SURGICAL OTHR DR: Billy Harvey DO ORDERED: FROZ 1st 54968, GM L4 72183/2, ANATOMIC SPEC COPIES TO: Billy Harevy DO [address] [place] [address] [address] [place] [address] Ashley Floyd MD [facility] [facility] [address] [place] [address] [email or web address] PROCEDURES: FROZ 1st 24451 (06/14/21) GM L4 54862 (06/14/21) TISSUES: A. ENDOMETRIUM CURETTINGS / BIOPSY - UTERINE CURETTINGS CLINICAL HISTORY SAME FINAL DIAGNOSIS Endometrium, curetting (for frozen):Benign endometrial tissue with extensive hemorrhage.No products of conception identified. Endometrium, curetting:Benign endometrial tissue with areas of hemorrhage.No products of conception identified. GROSS DESCRIPTION Specimen #1 is received fresh for frozen section in a container labeled the patient's nameand designated curettings for frozen and consists of multiple fragments of hawkins soft tissuewhich in aggregate measure 2 x 1 x 0.3 cm. The entire specimen is submitted for frozensection diagnosis. The specimen was then submitted in cassette A. Specimen #2 is received in formalin in a container labeled the patient's name anddesignated curettings and consists of multiple fragments of hawkins soft tissue with thelargest fragment measuring 0.3 cm in greatest dimension. The specimen is entirely CONTINUED ON NEXT PAGE R UN DATE: 06/15/21 [facility] PAGE 2 RUN TIME: 1133 Specimen Inquiry RUN USER: INTERFACE S PEC #: [id number] PATIENT: MONI SCHULER #[id number] (Continued) GROSS DESCRIPTION (Continued) submitted in cassette B. Frozen section diagnosis on specimen #1: Benign endometrial tissue; no products ofconception identified (FRANKIE). Technical component performed at [facility],[address] [place] [address], [place] [address] Unless gross only, the diagnosis is based upon microscopic examination.Immunohistochemistr y: This test was developed and its performance characteristicsdetermined by this laboratory. It has not been approved nor does it need approvalby the [place] FDA. Appropriate positive and negative controls are reviewed and judgedto be acceptable. This laboratory is certified under the Clinical Laboratory ImprovementAmendments (CLIA-88) as qualified to perform high complexity clinical laboratory testing. MICROSCOPIC DESCRIPTION A microscopic examination was performed. CLINICAL INFORMATION MISCARRIAGE WITH HCG BLOOD TEST --- Signed SIGNATURE ON FILE Charlie Manning 06/15/21 1133 END OF REPORT Novel Coronavirus 2018 [id number] 00:31:00 Test Item Value Reference Range Interpretation Comments Novel Coronavirus Negative Negative Positive r esults are 2018 Inhouse (test indicativ e of the presence code = COVNONPUI) ofSARS-CoV -2 RNA, clinical correlation wit h patient historyand othe r diagnostic info rmation is necessary to determinepatien t infection status. Positiv e results do not rule out bacterial infection or co -infection with other viru ses. Negative result s do not preclude SARS-C oV-2 infection andsh ould not be used as the john e basis for patient managementdecis ions. Negative result s must be combined with otherclinical observations, p atient history, and epidemiological information . Detection of SARS-CoV-2 RNA may be affe cted bysample collec tion methods, storag e conditions, and /or stageof infection. Flores l RNA mutations, vacc inations, antiviraltherap eutics, antibiotics, chemotherapeuti c orimmunosuppres marty drugs have not been e valuated for effectson d etection. Results are for the identification of SARS-CoV-2 RNA usingreal-time (RT) polymerase daija n reaction (PCR) technolog yfor the qualitative det ection of nucleic acids f rom jhyHWLQ-ZmA-8 v irus and diagnosis of SA RS-CoV-2 virusinfection. It is an Emergency Use Authorization ( EUA) testauthorized by the U.S. FDA. COMPREHENSIVE METABOLIC [id number] 16:39:00 Test Item Value Reference Range Interpretation Comments SODIUM (test code = NA) 142 mEq/L 134-147 N POTASSIUM (test code = 3.7 mEq/L 3.4-5.0 N K) CHLORIDE (test code = 106 mEq/L 100-108 N CL) CARBON DIOXIDE (test 27 mEq/l 21-33 N code = CO2) ANION GAP (test code = 13 0-20 N GAP) GLUCOSE (test code = 100 mg/dL 70-110 N GLU) BLOOD UREA NITROGEN 9 mg/dL 7-18 N (test code = BUN) GLOMERULAR FILTRATION 119.0 110-120 N Units of measure = RATE (test code = GFR) ml/mi n/1.73 m2 CREATININE (test code = 0.6 mg/dL 0.6-1.3 N CREAT) TOTAL PROTEIN (test 7.2 g/dL 6.4-8.2 N code = PROT) ALBUMIN (test code = 3.80 g/dL 3.4-5.0 N ALB) CALCIUM (test code = 9.5 mg/dL 8.0-10.5 N CA) BILIRUBIN TOTAL (test 0.30 mg/dL 0.0-1.0 N code = BILT) SGOT/AST (test code = 23 IUnit/L 15-37 N AST) SGPT/ALT (test code = 23 IUnit/L 30-65 L ALT) ALKALINE PHOSPHATASE 98 IUnit/L 20-125 N TOTAL (test code = ALKP) HCG [id number] 16:39:00 Test Item Value Reference Range Interpretation Comments HCG SERUM (test 77.6 0 - 6 NOT P REGNANT > 6 code = HCG) SUGGESTIVE OF E JAHAIRA RISES TWO FOLD EVERY 2 DAYS; SUGGEST RECONFI RMING AFTER 2 DAYS. 150,000-2 00,[address] TRIMESTER 10,00 0 - 50,000 2ND & 3RD TRIMESTER Results in beverly-Internati onal Units/mL PROTHROMBIN [id number] 16:36:00 Test Item Value Reference Range Interpretation Comments PROTHROMBIN TIME 11.6 SECONDS 9.3-12.9 N PATIENT (test code = PTP) INTERNATIONAL NORMAL 1.0 0.8-1.2 N TARGET INR BY RATIO (test code = INDICATIO N Indication INR) INR1. Prophylax is of venous thrombos is 2.0 - 3.0 (orthoped ic surgery), Proph ylaxis of venous throm bosis (other than hig h-risk surgery), Treat ment of Deep Vein Thrombosis/Pulm onary Embolism, Preve ntion of systemic emb olism - Tissue heart va lves, Acute Myocardia l Infarction (to prevent systemic emboli sm), Valvular heart disease, Atrial Fibrillation, Bileaflet mecha nical valve in aortic position.2. Mec hanical prosthetic valv es (high risk), 2. 5 - 3.5 Presence of Lup us Anticoagulant o r Antiphospholipi d Antibodies, Pre vention of systemic emb olism - Acute Myocardia l Infarction (to prevent recurrent infar ct). THROMBOPLASTIN TIME [id number] 16:36:00 Test Item Value Reference Range Interpretation Comments THROMBOPLASTIN TIME 38.5 Seconds 25.0-39.5 N Therape utic Range: PARTIAL (test code = 50.4 - 88.3 Seconds PTT) Effective 06/26/2018 CBC W/AUTO [id number] 16:22:00 Test Item Value Reference Range Interpretation Comments WHITE BLOOD CELL (test code = 10.4 x10 3/uL 4.5-11.0 N WBC) RED BLOOD CELL (test code = 4.37 x10 6/uL 3.54-5.02 N RBC) HEMOGLOBIN (test code = HGB) 11.4 g/dL 11.0-15.0 N HEMATOCRIT (test code = HCT) 36.7 % 33.0-45.0 N MEAN CELL VOLUME (test code = 84.0 fL 81.0-99.0 N MCV) MEAN CELL HGB (test code = MCH) 26.1 pg 27.0-33.0 L MEAN CELL HGB CONCETRATION 31.1 g/dL 33.0-37.0 L (test code = MCHC) RED CELL DISTRIBUTION WIDTH CV 13.6 % 11.5-14.5 N (test code = RDW) RED CELL DISTRIBUTION WIDTH SD 41.9 fL 37.0-54.0 N (test code = RDW-SD) PLATELET COUNT (test code = 375 x10 3/uL 150-400 N PLT) MEAN PLATELET VOLUME (test code 9.4 fL 7.0-9.0 H = MPV) NEUTROPHIL % (test code = NT%) 58.1 % 56.0-77.0 N IMMATURE GRANULOCYTE % (test 0.4 % 0.0-2.0 N code = IG%) LYMPHOCYTE % (test code = LY%) 33.2 % 14.0-32.0 H MONOCYTE % (test code = MO%) 5.6 % 4.8-9.0 N EOSINOPHIL % (test code = EO%) 2.1 % 0.3-3.7 N BASOPHIL % (test code = BA%) 0.6 % 0.0-2.0 N NUCLEATED RBC % (test code = 0.0 % 0-0 N NRBC%) NEUTROPHIL # (test code = NT#) 6.07 x10 3/uL 2.0-7.6 N IMMATURE GRANULOCYTE # (test 0.04 x10 3/uL 0.00-0.03 H code = IG#) LYMPHOCYTE # (test code = LY#) 3.46 x10 3/uL 1.0-3.8 N MONOCYTE # (test code = MO#) 0.58 x10 3/uL 0.1-0.8 N EOSINOPHIL # (test code = EO#) 0.22 x10 3/uL 0.0-0.2 H BASOPHIL # (test code = BA#) 0.06 x10 3/uL 0.0-0.2 N NUCLEATED RBC # (test code = 0.00 x10 3/uL 0.0-0.1 N NRBC#) MANUAL DIFF REQUIRED (test code NO = MDIFF) BASIC METABOLIC [id number] 10:23:00 Test Item Value Reference Range Interpretation Comments SODIUM (BEAKER) 139 meq/L 136-145 (test code = 381) POTASSIUM (BEAKER) 3.8 meq/L 3.5-5.1 (test code = 379) CHLORIDE (BEAKER) 105 meq/L 98-107 (test code = 382) CO2 (BEAKER) (test 25 meq/L 22-29 code = 355) BLOOD UREA NITROGEN 7 mg/dL 7-21 (BEAKER) (test code = 354) CREATININE (BEAKER) 0.74 mg/dL 0.57-1.25 (test code = 358) GLUCOSE RANDOM 97 mg/dL 70-105 (BEAKER) (test code = 652) CALCIUM (BEAKER) 9.6 mg/dL 8.4-10.2 (test code = 697) EGFR (BEAKER) (test 96 mL/min/1.73 ESTIMA ANEESH GFR IS code = 1092) sq m NOT ACCURATE CREATININE CLEARANCE IN PREDICTING GLOMERULAR FILTRATION RATE . ESTIMATED GFR I S NOT APPLICABLE FOR DIALYSIS PATIEN TS. CBC W/PLT COUNT & AUTO [id number] 10:08:00 Test Item Value Reference Range Interpretation Comments WHITE BLOOD CELL COUNT (BEAKER) 9.7 K/ L 3.5-10.5 (test code = 775) RED BLOOD CELL COUNT (BEAKER) 4.49 M/ L 3.93-5.22 (test code = 761) HEMOGLOBIN (BEAKER) (test code = 12.4 GM/DL 11.2-15.7 410) HEMATOCRIT (BEAKER) (test code = 38.9 % 34.1-44.9 411) MEAN CORPUSCULAR VOLUME (BEAKER) 86.6 fL 79.4-94.8 (test code = 753) MEAN CORPUSCULAR HEMOGLOBIN 27.6 pg 25.6-32.2 (BEAKER) (test code = 751) MEAN CORPUSCULAR HEMOGLOBIN CONC 31.9 GM/DL 32.2-35.5 L (BEAKER) (test code = 752) RED CELL DISTRIBUTION WIDTH 13.0 % 11.7-14.4 (BEAKER) (test code = 412) PLATELET COUNT (BEAKER) (test 390 K/CU MM 150-450 code = 756) MEAN PLATELET VOLUME (BEAKER) 9.3 fL 9.4-12.3 L (test code = 754) NUCLEATED RED BLOOD CELLS 0 /100 WBC 0-0 (BEAKER) (test code = 413) NEUTROPHILS RELATIVE PERCENT 65 % (BEAKER) (test code = 429) LYMPHOCYTES RELATIVE PERCENT 27 % (BEAKER) (test code = 430) MONOCYTES RELATIVE PERCENT 6 % (BEAKER) (test code = 431) EOSINOPHILS RELATIVE PERCENT 2 % (BEAKER) (test code = 432) BASOPHILS RELATIVE PERCENT 1 % (BEAKER) (test code = 437) NEUTROPHILS ABSOLUTE COUNT 6.27 K/ L 1.56-6.13 H (BEAKER) (test code = 670) LYMPHOCYTES ABSOLUTE COUNT 2.65 K/ L 1.18-3.74 (BEAKER) (test code = 414) MONOCYTES ABSOLUTE COUNT (BEAKER) 0.54 K/ L 0.24-0.36 H (test code = 415) EOSINOPHILS ABSOLUTE COUNT 0.16 K/ L 0.04-0.36 (BEAKER) (test code = 416) BASOPHILS ABSOLUTE COUNT (BEAKER) 0.05 K/ L 0.01-0.08 (test code = 417) IMMATURE GRANULOCYTES-RELATIVE 0 % 0-1 PERCENT (BEAKER) (test code = 2801) CARDIAC ENZYMES [id number] 08:54:00 Test Item Value Reference Range Interpretation Comments CREATINE KINASE (CK) 55 Units/L 26-192 N (test code = CK) CKMB (test code = <0.5 NG/ML 0.5-5.0 L DISREGARD CKMB INDEX CKMBT) CALCULATION WHE NEVER THE CKMBT ISREP ORTED <0.5 CKMB INDEX (test 0.9 0.0-2.5 N code = CKMBI) TROPONIN-I (test <0.02 NG/ML 0.00-0.06 N REFERENCE R DEV code = TROPI) TROPONIN I HEA LTHY INDIVIDUALS: <0 .06 ng/mL R/O ISCHE EMILEE: 0.07 - 0.60 ng/ mL CUT-OFF RANGE F OR AMI: 0.60 - 1.5 ng/m L : Specimen comments: Please see the initial specimen in the lab as the first draw on this series Comments to Skein Spooler: Please draw the 2nd specimen q4hrs after the first and the 3rd 8hrs after the first.Specimen comments: drawn Q4hrs then [id number] to Skein Spooler: Patient is currently in the ED waiting on a bed- XR CHEST 1 [id number] 01:43:00 FAX: Maryse Rosa MD [place]: St: REG Name: MONI DIETRICH [facility] : 1990 Age/S: 27/F [address] [facility] Unit #: [id number] Loc: [address] Phys: [place] [id number] Acct: [id number] Dis Date: Status: REG ER PHONE #: [phone] Exam Date: 04/04/2018 0101 FAX #: [phone] Reason: SVT EXAMS: CPT CODE: [id number] XR CHEST 1 V 44395 HISTORY: SVT Location: C3 COMPARISON:01/27/2017 FINDINGS: Heart size and vascularity are within normal limits. The lungs are clear of focal consolidation. No effusion, pneumothorax, or acute osseous abnormality. IMPRESSION: 1. No focal consolidation. No other acute abnormalities. at 0143 Reported and signed by: Jesús Price M.D. CC: Maryse Swenson MD Technologist: PING HENSON Trnscrd Date/Time/By: 04/04/2018 (0143) : By: [email or web address] PAGE 1 Signed Report FAX: Maryse Rosa MD [place]: St: REG Name: MONI DIETRICH [facility] : 1990 Age/S: 27/F [address] [facility] Unit #: [id number] Loc: [address] Phys: [place] [id number] Acct: [id number] Dis Date: Status: REG ER PHONE #: [phone] Exam Date: 04/04/2018 0101 FAX #: [phone] Reason: SVT EXAMS: CPT CODE: [id number] XR CHEST 1 V 67945 (Continued) Orig Print D/T: S: 04/04/2018 (0146) PAGE 2 Signed ReportUR HCG [id number] 01:32:00 Test Item Value Reference Range Interpretation Comments UR HCG QUAL (test code = HCGQLU) NEGATIVE NEGATIVE COMPREHENSIVE METABOLIC [id number] 01:12:00 Test Item Value Reference Range Interpretation Comments SODIUM (test code = NA) 136 mmol/l 134.0-147.0 N POTASSIUM (test code = K) 3.3 mmol/L 3.6-5.2 L CHLORIDE (test code = CL) 101 mmol/l 98.0-107.0 N CARBON DIOXIDE (test code = CO2) 25.6 mmol/l 21.0-33.0 N ANION GAP (test code = GAP) 12.7 0-20 N GLUCOSE (test code = GLU) 126 mg/dl 70.0-110.0 H BLOOD UREA NITROGEN (test code = 11 mg/dl 7.0-18.0 N BUN) CREATININE (test code = CREAT) 0.83 mg/dL 0.60-1.30 N GFR NON BLACK (test code = 89 mL/min 110-120 L GFRNONBLACK) GFR BLACK (test code = GFRBLACK) 107 mL/min 133-145 L TOTAL PROTEIN (test code = PROT) 8.2 GM/DL 6.0-8.1 H ALBUMIN (test code = ALB) 3.4 gm/dL 3.2-4.7 N CALCIUM (test code = CA) 9.4 mg/dl 8.0-10.5 N BILIRUBIN TOTAL (test code = 0.6 mg/dl 0.0-1.0 N BILT) SGOT/AST (test code = AST) 14 Units/L 15.0-37.0 L SGPT/ALT (test code = ALT) 24 Units/L 12.0-78.0 N ALKALINE PHOSPHATASE TOTAL (test 104 Units/L 50.0-136.0 N code = ALKP) [id number] 01:12:00 Test Item Value Reference Range Interpretation Comments LIPASE (test code = LIP) 76 Units/L 65.0-230.0 N B-TYPE NATRIURETIC [id number] 01:12:00 Test Item Value Reference Range Interpretation Comments B-TYPE NATRIURETIC PEPTIDE (test code PG/ML 5-100 = BNP) CARDIAC ENZYMES [id number] 01:12:00 Test Item Value Reference Range Interpretation Comments CREATINE KINASE (CK) 53 Units/L 26-192 N (test code = CK) CKMB (test code = <0.5 NG/ML 0.5-5.0 L DISREGARD CKMB INDEX CKMBT) CALCULATION WHE NEVER THE CKMBT ISREP ORTED <0.5 CKMB INDEX (test 0.9 0.0-2.5 N code = CKMBI) TROPONIN-I (test <0.02 NG/ML 0.00-0.06 N REFERENCE R DEV code = TROPI) TROPONIN I HEA LTHY INDIVIDUALS: <0 .06 ng/mL R/O ISCHE EMILEE: 0.07 - 0.60 ng/ mL CUT-OFF RANGE F OR AMI: 0.60 - 1.5 ng/m L COMPREHENSIVE METABOLIC [id number] 01:12:00 Test Item Value Reference Range Interpretation Comments SODIUM (test code = NA) 136 mmol/l 134.0-147.0 N POTASSIUM (test code = K) 3.3 mmol/L 3.6-5.2 L CHLORIDE (test code = CL) 101 mmol/l 98.0-107.0 N CARBON DIOXIDE (test code = CO2) 25.6 mmol/l 21.0-33.0 N ANION GAP (test code = GAP) 12.7 0-20 N GLUCOSE (test code = GLU) 126 mg/dl 70.0-110.0 H BLOOD UREA NITROGEN (test code = 11 mg/dl 7.0-18.0 N BUN) CREATININE (test code = CREAT) 0.83 mg/dL 0.60-1.30 N GFR NON BLACK (test code = 89 mL/min 110-120 L GFRNONBLACK) GFR BLACK (test code = GFRBLACK) 107 mL/min 133-145 L TOTAL PROTEIN (test code = PROT) 8.2 GM/DL 6.0-8.1 H ALBUMIN (test code = ALB) 3.4 gm/dL 3.2-4.7 N CALCIUM (test code = CA) 9.4 mg/dl 8.0-10.5 N BILIRUBIN TOTAL (test code = 0.6 mg/dl 0.0-1.0 N BILT) SGOT/AST (test code = AST) 14 Units/L 15.0-37.0 L SGPT/ALT (test code = ALT) 24 Units/L 12.0-78.0 N ALKALINE PHOSPHATASE TOTAL (test 104 Units/L 50.0-136.0 N code = ALKP) [id number] 01:12:00 Test Item Value Reference Range Interpretation Comments LIPASE (test code = LIP) 76 Units/L 65.0-230.0 N B-TYPE NATRIURETIC [id number] 01:12:00 Test Item Value Reference Range Interpretation Comments B-TYPE NATRIURETIC PEPTIDE (test 30 PG/ML 5-100 N code = BNP) CARDIAC ENZYMES [id number] 01:12:00 Test Item Value Reference Range Interpretation Comments CREATINE KINASE (CK) 53 Units/L 26-192 N (test code = CK) CKMB (test code = <0.5 NG/ML 0.5-5.0 L DISREGARD CKMB INDEX CKMBT) CALCULATION WHE NEVER THE CKMBT ISREP ORTED <0.5 CKMB INDEX (test 0.9 0.0-2.5 N code = CKMBI) TROPONIN-I (test <0.02 NG/ML 0.00-0.06 N REFERENCE R DEV code = TROPI) TROPONIN I HEA LTHY INDIVIDUALS: <0 .06 ng/mL R/O ISCHE EMILEE: 0.07 - 0.60 ng/ mL CUT-OFF RANGE F OR AMI: 0.60 - 1.5 ng/m L PROTHROMBIN [id number] 00:59:00 Test Item Value Reference Range Interpretation Comments PROTHROMBIN TIME 12.2 SECONDS 9.9-12.8 N PATIENT (test code = PTP) INTERNATIONAL NORMAL 1.0 0.89-1.14 N THE INR IS TO BE USED RATIO (test code = ONLY FOR MONITORING INR) ORAL ANTICOAGULANTTH ERAPY. THE FOLLOWING A RE SUGGESTED RANGE S FROM [facility] LEGE OF CHEST PHYSICIANS:KESHAV CATION INR VALUEPROPHY LAXIS OF VENOUS THROM BOSIS (ORTHOPEDIC ALEX MAICOL) 2.0 - 3.0PROPHY LAXIS OF VENOUS THROM BOSIS (OTHER THAN HIG H-RISK SURGERY) 2.0 - 3.0TREATMENT OF DEEP VEIN THROMBOSIS OR PULMONARY EMBOL ISM 2.0 - 3.0PREVENTION OF SYSTEMIC EMBOLI SM TISSUE HEART VA LVES 2.0 - 3.0 ACUTE MYOCARDIAL INFA RCTION (TO PREVENT SYS TEMIC EMBOLISM) 2.0 - 3.0 ACUTE MYOCARDIA L INFARCTION (TO PREVENT RECURRENT INFAR CT) 2.5 - 3.0 VALVULAR HEART DISEASE 2.0 - 3 .0 ATRIAL FIBRILAT ION 2.0 - 3.0BILEAFLET MECHANICAL VALV E IN AORTIC POSITION 2.0 - 3.0MECHANICAL PROSTHETIC VALV ES (HIGH RISK) 2.5 - 3.5PRESENCE OF LUPUS ANTICOAGULANT O R ANTIPHOSPHOLIPI D ANTIBODIES 2.5 - 3.5 THROMBOPLASTIN TIME [id number] 00:59:00 Test Item Value Reference Range Interpretation Comments THROMBOPLASTIN TIME 32.40 SECONDS 25.86-36.07 N [place] [facility] PARTIAL (test code = Therape uti Range - PTT) APTT of 55.8-85 .4 secondscorrelat es with plasma heparin concentration o f 0.2-0.4 u/mL Ne w range effective - COMPREHENSIVE METABOLIC [id number] 00:55:00 Test Item Value Reference Range Interpretation Comments SODIUM (test code = NA) 136 mmol/l 134.0-147.0 N POTASSIUM (test code = K) 3.3 mmol/L 3.6-5.2 L CHLORIDE (test code = CL) 101 mmol/l 98.0-107.0 N CARBON DIOXIDE (test code = CO2) 25.6 mmol/l 21.0-33.0 N ANION GAP (test code = GAP) 12.7 0-20 N GLUCOSE (test code = GLU) mg/dl 70.0-110.0 BLOOD UREA NITROGEN (test code = mg/dl 7.0-18.0 BUN) CREATININE (test code = CREAT) mg/dL 0.60-1.30 GFR NON BLACK (test code = mL/min 110-120 GFRNONBLACK) GFR BLACK (test code = GFRBLACK) mL/min 133-145 TOTAL PROTEIN (test code = PROT) gm/dL 6.4-8.2 ALBUMIN (test code = ALB) gm/dl 3.2-4.7 CALCIUM (test code = CA) mg/dl 8.0-10.5 BILIRUBIN TOTAL (test code = mg/dl 0.0-1.0 BILT) SGOT/AST (test code = AST) Units/L 15.0-37.0 SGPT/ALT (test code = ALT) Units/L 12.0-78.0 ALKALINE PHOSPHATASE TOTAL (test Units/L 50.0-136.0 code = ALKP) [id number] 00:55:00 Test Item Value Reference Range Interpretation Comments LIPASE (test code = LIP) Units/L 65.0-230.0 B-TYPE NATRIURETIC [id number] 00:55:00 Test Item Value Reference Range Interpretation Comments B-TYPE NATRIURETIC PEPTIDE (test code PG/ML 5-100 = BNP) CARDIAC ENZYMES [id number] 00:55:00 Test Item Value Reference Range Interpretation Comments CREATINE KINASE (CK) (test code = Units/L 26-192 CK) CKMB (test code = CKMBT) NG/ML 0.5-5.0 CKMB INDEX (test code = CKMBI) 0.0-2.5 TROPONIN-I (test code = TROPI) NG/ML 0.00-0.06 CBC W/AUTO [id number] 00:55:00 Test Item Value Reference Range Interpretation Comments WHITE BLOOD CELL (test code = WBC) 13.6 K/mm3 4.5-11.0 H RED BLOOD CELL (test code = RBC) 4.80 M/mm3 3.80-5.20 N HEMOGLOBIN (test code = HGB) 13.1 gm/dL 12.0-16.0 N HEMATOCRIT (test code = HCT) 40.0 % 36.0-48.0 N MEAN CELL VOLUME (test code = MCV) 83.3 UM3 82.0-99.0 N MEAN CELL HGB (test code = MCH) 27.3 UUG 25.5-32.5 N MEAN CELL HGB CONCETRATION (test 32.8 gm/dL 29.0-35.5 N code = MCHC) RED CELL DISTRIBUTION WIDTH (test 12.9 % 11.5-15.0 N code = RDW) PLATELET COUNT (test code = PLT) 387 K/mm3 150-400 N MEAN PLATELET VOLUME (test code = 9.4 fl 7.4-10.4 N MPV) NEUTROPHIL % (test code = NT%) 78.4 % 49.0-76.0 H LYMPHOCYTE % (test code = LY%) 16.0 % 23.0-38.0 L MONOCYTE % (test code = MO%) 4.8 % 1.0-10.0 N EOSINOPHIL % (test code = EO%) 0.1 % 1.0-5.0 L BASOPHIL % (test code = BA%) 0.2 % 0.0-1.0 N NEUTROPHIL # (test code = NT#) 10.6 K/mm3 2.4-6.3 H LYMPHOCYTE # (test code = LY#) 2.2 K/mm3 1.2-4.0 N MONOCYTE # (test code = MO#) 0.7 K/mm3 0.0-0.6 H EOSINOPHIL # (test code = EO#) 0.0 K/MM3 0.0-0.7 N BASOPHIL # (test code = BA#) 0.0 K/mm3 0.0-0.2 N Notes Date/Time Note Provider Source 2021-10-26 18:42:00-00:00 [id number] [place], [place] [address] patient name: moni schuler admit date: 10/26/21 account no: [id number] room no: [facility] age: 30 report type: operative report sex: f admitting physician:melvin george md attending physician:melvin george md operation date: 10/26/2021 preoperative diagnoses: 1. gastroesophageal reflux disease. 2. morbid obesity, body mass index greater than 40. postoperative diagnoses: 1. gastroesophageal reflux disease. 2. morbid obesity, body mass index greater than 40. procedure performed: laparoscopic sleeve gastrec mary jo with intraoperative egd. surgeon: melvin george md anesthesia: general. intravenous fluids: crystalloid. blood loss: less than 30 ml. urine output: not measured. clinical project assistant: lin baptiste. ms. conrad helped opening and closing the patient to help drive the camera and exposing tissue and anatomy. procedure in detail: the pat ient was transferred to the operating room and laid in supine position. the patient was sedated and intubated. perioperative antibiotic, body warmer, and scd were used. the patient was then prepped and draped in sterile surgical f ashion. i entered the abdomen using a 5-mm optiview trocar technique. pneumoperitoneum was establish ed. i then placed three more 5-mm trocars, a 12 mm trocar and a liver retract or. after that, i then identified the stomach anato my is suitable for a sleeve gastrectomy. i measured 6 cm from the pylorus. i the n divided greater omentum off the greater curvature of the stomach using the lig asure. i then took down the short gastric using the ligasure. once that was accomplished, i then put a 42-nigerian bougie into the antrum of the stomach. i then started di viding the stomach along the 42-nigerian bougie. a total of 2 green, 2 gold, and 2 blue a ll with staple line reinforcement material was used to divide the st omach along the 42-nigerian bougie. once that was accomplished, i then remov ed the bougie and performed egd. egd was unremarkable. no angulation, kinkin g or twisting. no leak was seen. no bleeding was seen. at this time, i then suctioned out all fluid and blood clot. resected stomach was removed through the 12-mm trocar fascia closed with interrupted 0 vicryl. pneumoperitoneum was desufflated and trocars were patient name: moni schuler 691 removed. skin was closed with 3-0 vicryl and 4-0 monocryl. dermabond was applied. the patient tolerated the procedure wel l and was extubated and transferred to recovery room for further care. dictated by: melvin george md wt: op:nickolas/viet/errol dd: 10/26/2021 18:42:51 dt: 10/26/2021 19:11:26 conf#: [id number]/did#: [id number] authenticated by melvin george md on 11/01/2021 07: 36:02 am electronically signed by melvin george md on at 0736 patient name: moni schuler 691 2021-10-26 17:32:00-00:00 [facility]L [facility] ([facility]) Discharge Summary REPORT#:[id number] REPORT STATUS: Signed DATE:10/26/21 TIME: 1732 PATIENT: MONI SCHULER UNIT #: [id number] ROOM/BED: [place] [address] : [birth year] AGE: 30 SEX: F ATTEND: Melvin George ADM AUTHOR: Shahida Peck * ALL edits or amendments must be made on the [employer]/computer document * General Information Date of admission: Observation Start Date: Date of admission: 10/26/21 Discharge date: 10/26/21 Admission diagnosis: morbid obesity, DM, GERD Discharge diagnosis: same Hospital course: Pt was seen and examined by Dr George: Doing well. Tolerating liquids without nausea or vomiting. Pain is controlled with medication. Ambulating and voiding. - flatus. Pt. condition on discharge: stable Med Rec Med Rec Discharge meds: Stop taking the following medications: OMEPRAZOLE ER (PriLOSEC) 40 MG CAP.DR 40 MILLIGRAM ORAL DAILY. CHOLECALCIFEROL (VITAMIN D3) (VITAMIN D3) 5,000 UNIT TAB 5,000 UNITS ORAL DAILY. LACTOBACILLUS ACIDOPHILUS (PROBIOTIC ACIDOPHILUS ) 1 CAP CAP 1 CAPSULE ORAL DAILY. metFORMIN (GLUCOPHAGE) 500 MG TAB 500 MILLIGRAM ORAL DAILY. Continue taking these medications: valACYclovir (VALTREX) 1,000 MG TAB 1,000 MILLIGRAM ORAL TWICE DAILY. as needed for COLD SORES SERTRALINE (ZOLOFT) 25 MG TAB 25 MILLIGRAM ORAL DAILY. LEVOTHYROXINE (SYNTHROID) 75 MCG TAB 75 MICROGRAM ORAL DAILY. clonazePAM (KlonoPIN) 1 MG TAB 1 MILLIGRAM ORAL AT BEDTIME NEEDED. as neede d for ANXIETY CETIRIZINE (ZyrTEC) 5 MG TAB 5 MILLIGRAM ORAL DAILY. DOCOSAHEXANOIC ACID ( DHA) 200 MG CAP 200 MILLIGRAM ORAL DAILY. Start taking the following new medications: ACETAMINOPHEN/CODEINE (TYLEN OL WITH CODEINE 120-12 MG/5ML) 120 MG-12 MG/5 ML (5 ML) ELIXIR 15 MILLILITERS ORAL EVERY 4 HOURS NEEDED. as needed for ACTUE PAIN Qty = 250 Refills = 1 Objective VS/I O Last Documented: Result Date Time Pulse Ox 97 10/26 1345 B/P 142/74 10/26 1345 O2 Delivery Room air 10/26 1345 Pulse 79 10/26 1345 Resp 22 10/26 1345 Temp 97.0 10/26 1241 PATIENT WEIGHT: Weight (lb): 294 Weight (oz): 5.07 Weight (kg): 133.500 General appearance: alert, awake, oriented Head/Eyes: atraumatic, normocephalic Neck: no JVD Cardiovascular: regular rate rhythm Respiratory: no distress GI: soft, no guarding, no distention Extremities: moves all Musculoskeletal: normal inspection Neuro/STORE RECEIVER: alert, oriented X 3 Skin: dry, intact Wound/incision: Location: abdomen Site Condition: edges approximated, incision in tact Psychiatry: normal affect, normal judgment/insig ht Results Findings/Data: Laboratory Tests: 10/26 0839 Chemistry POC Glucose (70 - 110 MG/DL) 95 Results: labs reviewed, vital signs reviewed Discharge Instructions PCP PCP: PCP: Billy Harvey DO )( Discharge to: Home/Self Care Discharge Instructions Additional Discharge Routines: Attending Follow-Up, Equipment/Supplies, Wound/ Dressing Care )( Diet: Bariatric Liquid Diet, crush meds prior to ingestion )( Activity: As Tolerated, No Lifting >10lbs, No Strenuous Activity )( Wound/dressing care: Do not submerge incision, Keep wound clean and dry, OK to shower tomorrow )( Equipment/supplies: Use IS at least 10x/hour while awake Wear abdominal binder while awake and active Time spent: Time spent on patient care (minutes): 10 Follow-up Appointments Attending Physician: Attending Physician: Melvin George MD Attending physician follow up timeframe: 1 week Special instructions: Monitor blood sugar may need to adjust medicatio n Electronically Signed by Shahida Peck on at 1325 Electronically Signed by Melvin George MD on 2 at 1200 [facility] #:[id number] END OF REPORT 2021-10-22 08:26:00-00:00 [id number] [place] [address] PATIENT NAME: MONI SCHULER ADMIT DATE: ACCOUNT NO: [id number] ROOM NO: AGE: 30 REPORT TYPE: eELECTROCARDIOGRAM REPORT SEX: F ADMITTING PHYSICIAN:Melvin George MD ATTENDING PHYSICIAN:Melvin George MD Order: [id number] Test Reason : PREOP Test Date/Time Stamp: MonOct 22 2021 08:26:26 Blood Pressure : / mmHG Vent. Rate : 081 BPM Atrial Rate : 081 BPM P-R Int : 156 ms QRS Dur : 082 ms QT Int : 380 ms P-R-T Axes : 051 012 027 degree s QTc Int : 441 ms Normal sinus rhythm Normal ECG PRE_OP Confirmed by CAITLYN DUNNE MD ([id number]) on 10/23/19 2:34:25 PM Referred By: Melvin George Confirmed by:CAITLYN DUNNE MD at [id number] PATIENT NAME: MONI SCHULER 691 2021-06-11 18:47:00-00:00 [id number] [address] PATIENT NAME: MONI SCHULER ADMIT DATE: 06/11/21 ACCOUNT NO: [id number] ROOM NO: [facility] AGE: 30 REPORT TYPE: OPERATIVE REPORT SEX: F ADMITTING PHYSICIAN:Ashley Floyd MD ATTENDING PHYSICIAN:Ashley Floyd MD OPERATION DATE: PREOPERATIVE DIAGNOSIS: Missed /pregnanc y of unknown location. POSTOPERATIVE DIAGNOSES: 1. Missed / of unknown location . 2. Intrauterine adhesions. PROCEDURES: 1. Uterine curettage for missed . 2. Hysteroscopy with resection of adhesions. 3. Exam under anesthesia. 4. Paracervical block. 5. Submission of tissue for frozen section. SURGEON: Ashley Floyd MD TRANSFUSION AIDE: ANESTHESIA: General without intubation and parac ervical block. COMPLICATIONS: None. ESTIMATED BLOOD LOSS: Less than 50 mL. PATHOLOGY: 1. Curettings submitted for frozen section in to shy. 2. Hysteroscopy bag with int rauterine adhesions, mild submitted in MyoSure bag. FINDINGS: Exam under anesthesia revealed the iliamna viv to be midline, mobile, approximately 6-week size. Adnexa without masses or induration. A bivalve speculum exam revealed a normal cervix, vulva, a nd vagina. At the time of hysteroscopy, there were posterior uterine wall adhesions. There was no evidence of retained tissue. There was normal co ntour. There was normal proximal tubal ostia, and no rmal cervical canal. After resecting the adhesions, there was a completely normal endometrial cavity . DESCRIPTION OF PROCEDURE: The patient was taken to the operating room, placed in supine position, anesthesia was begun. She wa s placed in dorsal lithotomy position in J Carlos stirrups. The perineum and low er abdomen were prepped and draped in standard fashion. Exam under anesthesi a was as stated. A bivalve speculum was placed and a total of 20 mL of 2% l idocaine with epinephrine was infiltrated in divided doses at 3 and 9 o'clock, taking care to aspirate prior PATIENT NAME: MONI SCHULER [id number] to infiltrating to avoid intravascular a ccess. The uterus sounded to 8 cm. The cervix was dilated to 20-Serbian. A uterine curet tage was performed. All the curettings were submitted in total for frozen se ction. Thereafter, hysteroscopy was performed with a me Vital Vio 0-degree operative port, 4 mm hysteroscope. This had been preprimed with normal saline with maximum pressure setting at 100 mmH g. The tip of this was placed past the external os, advanced up the cervical canal with video guidance. Previously mentioned findings were noted. The MyoSure LITE blade was used to resect the adhesions. Thereafter, there was a smooth-appear ing normal endometrium with normal proximal tubal ostia, normal contour, goo d vascularity, and normal cervical canal. There was good hemostasi s from the tenaculum site and cervical os. She was placed in supine position, anesthesi a was discontinued. She was transferred from the OR table to the stretcher w ith a roller and then transferred to recovery room sitting at a 45-deg ree angle, responding to commands, in no acute distress. Her blood type is O positive and therefore, RhoG AM was not indicated. Preoperatively, the pros and cons and risks of t his procedure versus alternatives versus no intervention had been rev iewed extensively with the patient via secure video on a separate day from the procedure. The consent with complete review of the appropriate sections of [place] had been reviewed. This was again reviewed with her, sign ed, initialed in the holding area of the hospital. Also, preoperative and pos toperative instructions and a postoperative appointment, a s well as her postoperative prescriptions were given and reviewed with her at the preoperative visit. Dictated By: Ashley Floyd MD WT: OP:NICKOLAS/TASHA/ERROL Conf#: [id number]/DID#: [id number] Authenticated by Ashley Floyd MD On 06/14/19 02:09:25 PM at 0209 PATIENT NAME: MONI SCHULER [id number] 2021-06-09 15:49:00-00:00 [id number] [address] PATIENT NAME: MONI SCHULER ADMIT DATE: ACCOUNT NO: [id number] ROOM NO: AGE: 30 REPORT TYPE: eELECTROCARDIOGRAM REPORT SEX: F ADMITTING PHYSICIAN: ATTENDING PHYSICIAN:Ashley Floyd MD Order: [id number] Test Reason : PREOP Test Date/Time Stamp: MonJun 09 2021 15:49:25 Blood Pressure : / mmHG Vent. Rate : 084 BPM Atrial Rate : 084 BPM P-R Int : 152 ms QRS Dur : 084 ms QT Int : 372 ms P-R-T Axes : 044 011 044 degree s QTc Int : 439 ms Normal sinus rhythm Cannot rule out Anterior infarct , age undetermi hung Abnormal ECG No previous ECGs available Confirmed by GER GUILLAUME MD ([id number]) on 06/11/19 1:27:23 PM Referred By: Ashley Floyd Confirmed by:GER NEWSOME MD at 1327 PATIENT NAME: MONI SCHULER 460 2018-05-18 00:14:00-00:00 NESS GUTIERREZ [facility] OPERATIVE/PROCEDURE REPORT MONI DIETRICH FACILITY: [facility] Billing #: [id number] Room: [facility] MR #: [id number] : 1990 DATE OF PROCEDURE: 05/17/2018 SURGEON: Ness Gutierrez MD PREOPERATIVE DIAGNOSIS: Recurrent supraventricul ar tachycardia. 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 PROCEDURES: 1. Electrophysiology testing with left atrial re cordings. 2. NavX anatomical mapping of the slow pathway. 3. Radiofrequency catheter ablation for slow pat hway ablation. 4. Isoproterenol drug study. ANESTHESIA: Lidocaine, Versed, fentanyl. COMPLICATIONS: None. DESCRIPTION OF PROCEDURE: The patient was belkys t to the electrophysiology laboratory. The right and left groins were prepped in a standard manner. Local Xylocaine an esthesia was used. Standard sheaths were placed and standard catheters advanced including coronary sinus catheter, His catheter, right ventricular apical catheter. Baseline recordings were normal. Subsequent pacing maneuvers confirmed in ducible AV buster reentrant tachycardia. This was induced wi thout a prolonged HV interval with retrograde conduction below HIS Bundle electrogram. This was felt to be consiste nt with an atypical AV buster reentrant tachycardia with an atypical slow path way. Radiofrequency catheter ablation was performed of the slow pathway ant t o CS os and inside CS os posteriorly and anteriorly. Retrograde conductio n shifted to mid CS again w/o evidence retrograde AP and there was subsequentl y no inducible tachycardia in the baseline state or on an isoproterenol infusi on. The procedure was terminated. There were no complications. ERICA/ALIYA /[id number] 2018-04-04 11:44:00-00:00 [id number] [facility] [address] [address] PATIENT NAME: MONI DIETRICH ADMIT DATE: 03/14 05/29 ACCOUNT NO: [id number] DISCHARGE DATE: 9 ROOM NO: SUYZ REPORT TYPE: CONSULTATION REPORT DATE OF : [birth year] AGE: 27 SEX: F ADMITTING PHYSICIAN:Erika Dixon ATTENDING PHYSICIAN:Erika Dixon CONSULTATION DATE: 04/04/2018 CONSULTING PHYSICIAN: Nany Ruiz MD ATTENDING PHYSICIAN: Erika Dixon MD PRIMARY CARE PHYSICIAN: Billy Harvey DO REASON FOR CONSULTATION: Regarding cardiac evalu ation, the patient with supraventricular tachycardia. HISTORY OF PRESENT ILLNESS: This 27-year-old sin gle white female, born on 1990, presented with sudden onset of palpi tations with dizziness and weakness. The patient has history of supraventri cular tachycardia and in the past, was started on beta bl ocker, which helped her, but then it was changed to verapamil, which also helped. She was evaluated for ablation, but since her tachycardia was never docume nted, so she did not get ablation and since she had not had it for last 2 years, so she was taken of f the medication. She denies any chest pain. PAST MEDICAL HISTORY: Supraventricular tachycard ia, obesity, and depression. ALLERGIES: NONE. MEDICATIONS: Adderall 30 mg daily, Celexa, and K lonopin. PERSONAL HISTORY: Nonsmoker. Nonalcoholic. Does not abuse drugs. FAMILY HISTORY: Unremarkable. REVIEW OF SYSTEMS: GENERAL: She is overweight. HEENT: No headache. NECK: No complaint. CHEST: No complaint. CARDIOVASCULAR: Supraventricular tachycardia. ABDOMEN: No complaint. GENITOURINARY: No complaint. MUSCULOSKELETAL: No complaint. NEUROLOGICAL: Dizziness with tachycardia. PSYCHIATRIC: Attention deficiency, depression. ENDOCRINE: Obesity. PATIENT NAME: MONI DIETRICH ACCOUNT #: [id number] PHYSICAL EXAMINATION: EXTREMITIES: The patient is obese. No pa llor, cyanosis, clubbing, jaundice, or edema. NECK: No jugular venous distention. Thyroid not enlarged. Lymph node not palpable. CHEST: Vesicular breathing all over. No rales or rhonchi. CARDIOVASCULAR: She was in supraventricular tach ycardia with fast ventricular rate, but after treatment had converted to sinus rhythm. No murmur, gallop, or pericardial rub. ABDOMEN: No hepatosplenomegaly. No mass. No tend erness. JOINTS: No acute inflammation of the joint. Puls es are equal and normal. No abdominal bruit. No carotid bruit. No calf tende rness. INVESTIGATIONS: ECG showed very fast supraventri cular tachycardia. CBC: Hemoglobin 13.1 gm %, WBC 13,600, and platelet 3 87,000. Prothrombin time 12.2 with INR of 1, PTT 32.40. Comprehensive metaboli c panel shows potassium 3.3, glucose 126 and GFR 89, others were normal. BNP 30. Cardiac enzymes normal. test negative. Chest x-ray shows no ca rdiomegaly, no infiltrate or congestion. IMPRESSION: 1. Paroxysmal supraventricular tachycardia. 2. Obesity. 3. Depression. 4. Hypokalemia. 5. Hyperglycemia. PLAN OF TREATMENT: The patient's problems were d iscussed, treatment options were discussed. Since she does not want to take medication on a long-term basis, so she is advised to take verapamil back again and see her electronic musical instrument repairer for ablation. A copy of her EKG showing supraventricular tachycardia was given, so carmel will have documentation of her problem. Since she has converted to sinus rhyth m, she is stable for discharge, to be followed up as an outpatient. Thank you for asking me to e valuate the cardiac status of this patient with you. Dictated By: Nany Ruiz MD WT: CON:E.HIM/EDUARDO/NTS Conf#: [id number]/DID#: [id number] Authenticated by Nany Ruiz MD On 04/04/2018 07:22:23 PM Electronically Signed by Nany Ruiz MD on 0 04/04/18 at 1922 PATIENT NAME: MONI DIETRICH ACCOUNT #: [id number] 2018-04-04 09:34:00-00:00 [facility] ([facility]) Brief Discharge Note w/Med Rec REPORT#:[id number] REPORT STATUS: Signed DATE:04/04/18 TIME: 933 PATIENT: MONI DIETRICH UNIT #: [id number] ROOM/BED: [address] [address] : [birth year] AGE: 27 SEX: F ATTEND: Erika Cowart MD ADM AUTHOR: Erika Dixon MD * ALL edits or amendments must be made on the el ectronic/computer document * Med Rec PCP PCP: PCP: Billy Harvey V DO Med Rec Discharge meds: Stop taking the following medications: CETIRIZINE (ZyrTEC) 10 MG TAB ORAL DAILY. Continue taking these medications: ONDANSETRON (ZOFRAN) 4 MG TAB 4 MILLIGRAM ORAL EVERY 8 HOURS. DICLOFENAC SOD/MISOPROSTOL ER (ARTHROTEC 75 MG/2 00 MCG ER) 1 TAB TAB.DR 1 TABLET ORAL DAILY. Brief Discharge Note w/Med Rec Discharge to: home Discharge diagnosis: 1. Supraventricular tachycardia 2. Diarrhea. 3. Viral conjunctivitis, resolved. 4. Dehydration. Hospital course: 1. Supraventricular tachycardia as high as 242. She improved with medications. She received diltiazem 20 mg at the Emergency Room, her heart rate has improved since then. The patient has be en taking pseudoephedrine for the past 5 days prior to admission, whic h possibly have triggered this as well as her recent episode of gastrointestinal loss. She received IV fluids preadmission from a local urgent care. The combi nation of the dehydration and decongestant have triggered the event. The patie nt is currently asymptomatic. She has been seen by Dr. Bindu contreras as an outpatient whom she is advised to follow up with soon and to discontinue pseudoephedrine and Cefdinir. Activity: as tolerated Diet: regular Pt. condition on discharge: improved, stable Follow-up appointment(s): PCP in [address] Gutierrez soon at 0906 RPT #:[id number] END OF REPORT 2018-04-04 09:04:00-00:00 [id number] [facility] [address] [address] PATIENT NAME: MONI DIETRICH ADMIT DATE: 03/14 05/29 ACCOUNT NO: [id number] DISCHARGE DATE: ROOM NO: [facility] REPORT TYPE: HISTORY AND PHYSICAL DATE OF : [birth year] AGE: 27 SEX: F ADMITTING PHYSICIAN:Erika Dixon ATTENDING PHYSICIAN:Erika Dixon ADMISSION DATE: 04/04/2018 PRIMARY CARE PHYSICIAN: Billy Harvey DO CHIEF COMPLAINT: Palpitations. HISTORY OF PRESENT ILLNESS: The patient is a 27-year-old female with known SVT, admitted due to palpitations. The patient has be en diagnosed with SVT, but currently not on medication for the past 3 month s. She started to have sick symptoms of sore throat, hea dache, sweats, sinus pressure, postnasal drainage on 03/23/2018. She was evaluated as a common cold a t that time and advised supportive care. The patient was then seen by pro dolan PCP 1 week later on 03/30/2018 and was prescribed with cefdinir, bro mpheniramine, pseudoephedrine DM as well as eyedrops. The patient has been flaco ing the antibiotics since 03/30/2018 as well as the pseudoephedrine 5 to 1 0 mL every 6 to 8 hours for the past 5 days. On the day prior to admission, the patient started to have diarrhea approximately 10 episodes and on the da y of her admission she had multiple episodes of vomiting approximately 8 ep isodes with nausea and diarrhea. She was starting to have lightheadedne ss and was blacking out. She presented to a local urgent care initial ly and was given IV fluids and Zofran. While at the urgent care, the patient noted bryce t her heart rate was already elevated at 124. She was given Zofran and she f elt better and she went home; however, around midnight she was awakened by ch est pain. She has palpitations accompanied by shortness of breath , lightheadedness. Her heart rate was 124. She presented to the Emergency Ro om with heart rate of 244, blood pressure was 125/63, temperature 98, and O2 saturation 98% on room air. Initial labs; sodium 136, potassium 3.3, BUN 1 1, creatinine 0.83, and calcium 9.4. AST 14, ALT 24, total alkaline braden sphatase 104. BNP 30. Lipase 76. WBC 13.6, hemoglobin 13.1, hematocri t 40, and platelet count 387, neutrophils 78, and lymphocytes 16. Chest x-ray, no focal consolidation. No other acute abnormalities. EK G with sinus tachycardia, 212 rate. She was given adenosine, diltiazem tot al of 20 mg. Her heart rate eventually improved; it improved down to 98. Her symptoms resolved as well. PAST MEDICAL HISTORY: Supraventricular tachycard ia. PAST SURGICAL HISTORY: Unremarkable. She did hav e wisdom tooth extraction. FAMILY HISTORY: Maternal grandfather with cardio vascular event, [place] at the age of 47. Paternal grandfather with pacemaker. SOCIAL HISTORY: The patient denies any alcohol o r tobacco use. She drinks caffeine every other day. PATIENT NAME: MONI DIETRICH ACCOUNT #: [id number] ALLERGIES: NO KNOWN DRUG ALLERGIES. MEDICATIONS: TobraDex 0.3 four drops 4 times a d ay, cefdinir 300 mg 1 capsule p.o. b.i.d., Bromfed DM 5 to 10 mL every 6 hours, diclofenac 75 mg 1 tablet p.o. b.i.d., famciclovir 500 mg 1 tablet p.o. b.i.d. REVIEW OF SYSTEMS: CONSTITUTIONAL: No fever. She has weakness. SKIN: No rash or swelling. ALLERGY: No sneezing or rhinorrhea. EYES: She had a pink eye that is resolving. ENT: She had a sinus infection earlier. RESPIRATORY: No cough. CARDIOVASCULAR: As mentioned in history. GASTROINTESTINAL: As mentioned in history. GENITOURINARY: No dysuria or hematuria. MUSCULOSKELETAL: No pain. ENDOCRINE: Unremarkable. PSYCHIATRY: No agitation or anxiety. PHYSICAL EXAMINATION: GENERAL APPEARANCE: She is awake, alert, oriente d, not in acute distress. VITAL SIGNS: Blood pressure 108/70, puls e rate of 82, respiratory rate 19, and temperature 36.9. HEAD AND EYES: Atraumatic head, normocephalic. P upils equally reactive to light. [place] palpebral conjunctivae. Anicteric sc lerae. ENT: Moist lips. Moist buccal. NECK: Supple, nontender. CARDIOVASCULAR: Regular rate. Regular rhythm. No murmur. RESPIRATORY: Symmetrical chest expansion. No ret ractions. Clear to auscultation. GASTROINTESTINAL: Soft, nontender. No palpable m ass. EXTREMITIES: Moves all. No edema. SKIN: Dry and intact. PSYCHIATRY: Normal mood, normal affect. LABORATORY DATA: Sodium 136, potassium 3 .3, chloride 101, carbon dioxide 25.6, anion gap 12.7, BUN 11, creatinine 0.83, glucose 126, and calcium 9.4. AST 14, ALT 24, total alkaline phosphatase 104. Troponin I less than 0.02. Lipase 76. INR of 1. WBC 13.6, hemoglobin 13.1, hematocrit 40, platelet count 387, neutrophils 78.4, lymphocytes 16. HCG negative. RADIOLOGY IMAGING: Chest x-ray, no focal consoli dation. No other acute abnormalities. ASSESSMENT AND PLAN: 1. Supraventricular tachycardia as high as 242. She improved with medications. She received diltiazem 20 mg at the Emergency Room, her heart rate has improved since then. The patient has be en taking pseudoephedrine for the past 5 days prior to admission, whic h possibly have triggered this as well as her recent episode of gastrointestinal loss. She received IV fluids preadmission from a local urgent care. The combi nation of the dehydration and decongestant have triggered the event. The patie nt is currently asymptomatic. She has been seen by Dr. Gutierrez as an outpatient. We will wait for further PATIENT NAME: MONI DIETRICH ACCOUNT #: [id number] recommendations from tanning wheel filler. 2. Diarrhea. I believe this is from the intake o f antibiotic, cefdinir. The patient does not need any more antibiotic. She i s advised to stop the medication. Her labs are essentially within norm al limits. 3. Viral conjunctivitis, resolved. No need to co ntinue the eyedrops. 4. Dehydration. The patient received IV fluids p readmission. She looks clinically well hydrated this morning. We will c ontinue IV fluids for the meantime. 5. Disposition. Once the patient is evaluated by the cardiology, we will follow recommendations, and possibly discharge l ater this afternoon. Dictated By: Erika Dixon MD WT: HP:E.COLTEN/HANK/ERROL Conf#: [id number]/DID#: [id number] Authenticated and Edited by Erika Dixon On 04/10/18 3:07:29 PM at 1542 PATIENT NAME: MONI DIETRICH [id number] 2018-04-04 09:00:00-00:00 [facility] ([facility]) History Physical - Adult REPORT#:[id number] REPORT STATUS: Signed DATE:04/04/18 TIME: 899 PATIENT: MONI DIETRICH UNIT #: [id number] ROOM/BED: [address] [address] : [birth year] AGE: 27 SEX: F ATTEND: Erika Cowart MD ADM AUTHOR: Erika Dixon MD * ALL edits or amendments must be made on the el ectronic/computer document * History of Present Illness HPI PCP: PCP: Piazza,Billy V DO HPI: Dictated #[id number] History Additional medical history: Tachycardia Smoking status for patients 13 years old or olde r: Never Smoker Medication/Allergy-Vaccine Hx Allergies: Coded Allergies: No Known Allergies (04/04/18) Physical Exam VS/I O Vital Signs: Date Time Temp Pulse Resp B/P B/P Pulse O2 O2 F low FiO2 Mean Ox Delivery Rate 04/04 0502 82 19 108/70 82 100 Room air 04/04 0405 36.9 89 19 113/88 96 100 Room air 04/04 0300 37.1 88 19 101/63 75 100 Room air 04/04 0205 Nasal 2.817328 cannula 04/04 0205 36.7 98 20 98/58 71 100 Nasal 2.0000 00 cannula 04/04 0130 36.7 108 20 122/66 84 98 Nasal 2.000 000 cannula 04/04 0028 36.7 237 20 125/63 83 98 Room air 24 hour I O ending at 0700: 04/04 0700 04/03 1900 Intake Total Output Total Balance Patient 120.455 kg Weight Weight Stated/Reported Measurement Method General appearance: alert ENT: moist mucosal membranes Results Findings/Data: Laboratory Tests: 04/04 04/04 04/04 0807 0112 0043 Chemistry Sodium (134.0 - 147.0 mmol/l) 136 Potassium (3.6 - 5.2 mmol/L) 3.3 L Chloride (98.0 - 107.0 mmol/l) 101 Carbon Dioxide (21.0 - 33.0 mmol/l) 25.6 Anion Gap (0 - 20) 12.7 BUN (7.0 - 18.0 mg/dl) 11 Creatinine (0.60 - 1.30 mg/dL) 0.83 Est GFR ( Amer) (133 - 145 mL/min) 107 L Est GFR (Non-Af Amer) (110 - 120 mL/min) 89 L Glucose (70.0 - 110.0 mg/dl) 126 H Calcium (8.0 - 10.5 mg/dl) 9.4 Total Bilirubin (0.0 - 1.0 mg/dl) 0.6 AST (15.0 - 37.0 Units/L) 14 L ALT (12.0 - 78.0 Units/L) 24 Total Alk Phosphatase (50.0 - 136.0 Units/L) 10 4 Total Creatine Kinase (26 - 192 Units/L) 55 53 CK-MB (CK-2) (0.5 - 5.0 NG/ML) <0.5 L <0.5 L CK-MB (CK-2) Rel Index (0.0 - 2.5) 0.9 0.9 Troponin I (0.00 - 0.06 NG/ML) <0.02 <0.02 B-Natriuretic Peptide (5 - 100 PG/ML) 30 Total Protein (6.0 - 8.1 GM/DL) 8.2 H Albumin (3.2 - 4.7 gm/dL) 3.4 Lipase (65.0 - 230.0 Units/L) 76 Coagulation INR (0.89 - 1.14) 1.0 PTT ([place]) (25.86 - 36.07 SECONDS) 32.40 PT Patient/Control Mix (9.9 - 12.8 SECONDS) 12. 2 Hematology WBC (4.5 - 11.0 K/mm3) 13.6 H RBC (3.80 - 5.20 M/mm3) 4.80 Hgb (12.0 - 16.0 gm/dL) 13.1 Hct (36.0 - 48.0 %) 40.0 MCV (82.0 - 99.0 UM3) 83.3 MCH (25.5 - 32.5 UUG) 27.3 MCHC (29.0 - 35.5 gm/dL) 32.8 RDW (11.5 - 15.0 %) 12.9 Plt Count (150 - 400 K/mm3) 387 MPV (7.4 - 10.4 fl) 9.4 Neut % (Auto) (49.0 - 76.0 %) 78.4 H Lymph % (Auto) (23.0 - 38.0 %) 16.0 L [place] % (Auto) (1.0 - 10.0 %) 4.8 Eos % (Auto) (1.0 - 5.0 %) 0.1 L Baso % (Auto) (0.0 - 1.0 %) 0.2 Neut # (Auto) (2.4 - 6.3 K/mm3) 10.6 H Lymph # (Auto) (1.2 - 4.0 K/mm3) 2.2 [place] # (Auto) (0.0 - 0.6 K/mm3) 0.7 H Eos # (Auto) (0.0 - 0.7 K/MM3) 0.0 Baso # (Auto) (0.0 - 0.2 K/mm3) 0.0 Urines Urine HCG, Qual (NEGATIVE) NEGATIVE Radiology data: Recent Impressions: RADIOLOGY - XR CHEST 1 V 04/04 0100 Report Impression - Status: SIGNED Entered: 04/04/2018 0146 IMPRESSION: 1. No focal consolidation. No other acute abnorm alities. Impression By: [email or web address] - Jesús Price M.D. at 0904 RPT #:[id number] END OF REPORT 2018-04-04 00:51:00-00:00 [facility] ([facility]) [facility] EMERGENCY PROVIDER REPORT REPORT#:[id number] REPORT STATUS: Signed DATE:04/04/18 TIME: 50 PATIENT: MONI DIETRICH UNIT #: [id number] ROOM/BED: [address] [address] AGE: 27 SEX: F PCP PHYS: Billy Harvey V DO SERVICE AUTHOR: Maryse Swenson MD * ALL edits or amendments must be made on the el [employer]/computer document * HPI-Palpit/Arrhyth General Confirmed Patient Yes Initial Greet Date/Time 04/04/[address] Harvey. Presentation Chief Complaint Palpitations Hx Obtained From Patient Onset Occurred Minutes ago (30) Symptom Duration Since onset Progression since Onset Unchanged Quality Uncomfortable. Radiation Does not radiate. Severity: Onset Pain level 0 out of 10 Severity: Current No pain currently Associated with Reports: Nausea, Vomiting. Denies: Chest pain, F ever. Associated Other Pt denies other symptoms Exacerbated by Nothing Relieved by Nothing Free Text HPI Notes Free Text HPI Notes 27 y/o F w/ PMHx of SVT, reports to ED c /o palpitations w/ onset of 30 minutes [employer]KH[employer]IN[employer]. Pt reports that she was at [facility] urgent care today for N/V and they administered her Zofran. The y also prescribed her Zofran. Pt reports associated sx of N/V. Denies diarrhea, fever, chills, or CP. Pt's LNMP was on March 20, 2018. Pt's HR at ED was 237bpm. Portions of this section were scribed by Orestes Christina on 04/04/18 at 0214 Risk-Palpit/Arrhyth Risk Stratification )( CHADs2-VASc Score )( CHADs2-VASc Score Response Value CHF: No 0 HTN: No 0 age greater than 75 years: No 0 age between 65 and 74 yrs: No 0 hx stroke, TIA, or TE: No 0 vascular disease: No 0 diabetes mellitus: No 0 female: Yes 1 Total 1 Portions of this section were scribed by Orestes Christina on 04/04/18 at 0129 Review of Systems ROS Statements All systems rev neg except as marked. Focused Review of Systems Constitutional Denies: Chills, Fever. Ears/Nose/Throat Denies: Nasal congestion, Sore throat. Respiratory Denies: Cough, non-productiv e, Cough, productive, Shortness of breath, Wheezing. Cardiovascular Reports: Palpitations (SVT). Denies: Chest pain. GI Reports: Nausea, Vomiting. Denies: Abdominal kellee n, Diarrhea. Skin Denies: Rash, Swelling. Neurologic Denies: Dizziness, Headache. Additional Review of Systems Eyes Denies: Blurred bilat, Photophobia. Female Denies: Dysuria, Hematuria. Musculoskeletal Denies: Back pain, Neck pain. Portions of this section were scribed by Orestes Christina on 04/04/18 at 0157 Past Medical History - Adult Stated Complaint SVT Allergies Coded Allergies: No Known Allergies (04/04/18) Home Medications Reported Medications AMPHETAMINE/DEXTROAMPHETAMINE SALTS (ADDERALL) 3 0 MG PO DAILY CITALOPRAM (CeleXA) 40 MG PO DAILY clonazePAM (KlonoPIN) 1 MG PO BEDTIME Review of Nursing Notes Rev avail, and agree Pt reports no significant: Past surgical history , Family history Additional Medical History Tachycardia Smoking status for patients 13 years old or olde r: Never Smoker Portions of this section were scribed by Orestes Christina on 04/04/18 at 0055 Physical Exam Vital Signs Vital Signs First Documented: Result Date Time Pulse Ox 98 04/04 0028 B/P 125/63 04/04 27 B/P Mean 83 04/04 27 O2 Delivery Room air 04/04 27 Temp 36.7 04/04 27 Pulse 237 04/04 27 Resp 20 04/04 27 O2 Flow Rate 2.833574 04/04 129 Last Documented: Result Date Time O2 Delivery Nasal cannula 04/04 204 O2 Flow Rate 2.429246 04/04 204 Pulse Ox 100 04/04 204 B/P 98/58 04/04 204 B/P Mean 71 04/04 204 Temp 36.7 04/04 204 Pulse 98 04/04 204 Resp 20 04/04 204 Review of Vital Signs Reviewed, Vital signs abno rmal (Tachycardic) Focused PE General/Const General/Const Awake, Alert, Cooperative Appearance/Presentation Obese. Ears/Nose/Throat Ears/Nose/Throat Airway patent, Mucous membrane s moist, Pharynx NL MS Neck Neck Supple, Full range of motion, No swelling, Non-tender Resp/Chest Respiratory/Chest Breath sounds NL, Breath soun ds = bilat, No respiratory distress, No wheezing Cardiovascular Cardiovascular Regular rhythm, Heart sounds NL, No gallop, No murmurs, No rubs, Pulses = bilaterally Heart Rate/Rhythm Tachycardia (HR in 220s). Abdomen/GI Abdomen/GI Soft, Non-tender, No guarding, No re bound, BS normoactive, No distention Skin Skin Color NL, No rash, Warm Color/Condition Diaphoresis present (Mild). Neurologic Neurologic Oriented X3, Speech NL, No motor def icits, No sensory deficits Portions of this section were scribed by Orestes Christina on 04/04/18 at 0214 Interpretation Diagnostics Lab Results Interpretation Results Laboratory Tests 04/04/18 0043: [Embedded Image Not Available] Laboratory Tests: 04/04 04/04 0112 0043 Chemistry Sodium (134.0 - 147.0 mmol/l) 136 Potassium (3.6 - 5.2 mmol/L) 3.3 L Chloride (98.0 - 107.0 mmol/l) 101 Carbon Dioxide (21.0 - 33.0 mmol/l) 25.6 Anion Gap (0 - 20) 12.7 BUN (7.0 - 18.0 mg/dl) 11 Creatinine (0.60 - 1.30 mg/dL) 0.83 Est GFR ( Amer) (133 - 145 mL/min) 107 L Est GFR (Non-Af Amer) (110 - 120 mL/min) 89 L Glucose (70.0 - 110.0 mg/dl) 126 H Calcium (8.0 - 10.5 mg/dl) 9.4 Total Bilirubin (0.0 - 1.0 mg/dl) 0.6 AST (15.0 - 37.0 Units/L) 14 L ALT (12.0 - 78.0 Units/L) 24 Total Alk Phosphatase (50.0 - 136.0 Units/L) 10 4 Total Creatine Kinase (26 - 192 Units/L) 53 CK-MB (CK-2) (0.5 - 5.0 NG/ML) <0.5 L CK-MB (CK-2) Rel Index (0.0 - 2.5) 0.9 Troponin I (0.00 - 0.06 NG/ML) <0.02 B-Natriuretic Peptide (5 - 100 PG/ML) 30 Total Protein (6.0 - 8.1 GM/DL) 8.2 H Albumin (3.2 - 4.7 gm/dL) 3.4 Lipase (65.0 - 230.0 Units/L) 76 Coagulation INR (0.89 - 1.14) 1.0 PTT ([place]) (25.86 - 36.07 SECONDS) 32.40 PT Patient/Control Mix (9.9 - 12.8 SECONDS) 12. 2 Hematology WBC (4.5 - 11.0 K/mm3) 13.6 H RBC (3.80 - 5.20 M/mm3) 4.80 Hgb (12.0 - 16.0 gm/dL) 13.1 Hct (36.0 - 48.0 %) 40.0 MCV (82.0 - 99.0 UM3) 83.3 MCH (25.5 - 32.5 UUG) 27.3 MCHC (29.0 - 35.5 gm/dL) 32.8 RDW (11.5 - 15.0 %) 12.9 Plt Count (150 - 400 K/mm3) 387 MPV (7.4 - 10.4 fl) 9.4 Neut % (Auto) (49.0 - 76.0 %) 78.4 H Lymph % (Auto) (23.0 - 38.0 %) 16.0 L [place] % (Auto) (1.0 - 10.0 %) 4.8 Eos % (Auto) (1.0 - 5.0 %) 0.1 L Baso % (Auto) (0.0 - 1.0 %) 0.2 Neut # (Auto) (2.4 - 6.3 K/mm3) 10.6 H Lymph # (Auto) (1.2 - 4.0 K/mm3) 2.2 [place] # (Auto) (0.0 - 0.6 K/mm3) 0.7 H Eos # (Auto) (0.0 - 0.7 K/MM3) 0.0 Baso # (Auto) (0.0 - 0.2 K/mm3) 0.0 Urines Urine HCG, Qual (NEGATIVE) NEGATIVE Microbiology: Date/Time Procedure - Status Source Growth 04/04 0206 MRSA Screen - ORD NASAL Recent Impressions: RADIOLOGY - XR CHEST 1 V 04/04 0100 Report Impression - Status: SIGNED Entered: 04/04/2018 0146 IMPRESSION: 1. No focal consolidation. No other acute abnorm alities. Impression By: [email or web address] - Jesús Price M.D. Lab Imaging Statement Laboratory radiographic studies reviewed and con sidered in the medical decision-making. Point of Care Testing Pulse Oximetry Pulse Ox % 98 On: Non-rebreather Interpretation Interpreted by nv, Pulse oximetr y normal Time 0028 Test Negative - urine HCG ECG #1 Interpretation ECG Documented in MUSE Yes Date 04/04/18 Time 0029 Interpreted by ED physician NL ECG Interpretation Normal sinus rhyth m, No acute ischemic changes, No STEMI Rate 212 Rhythm SVT ECG #2 Interpretation Text/Dict Note Second EKG performed after Adenocard was adminis tered. ECG Documented in MUSE Yes Date 04/04/18 Time 0031 Interpreted by ED physician NL ECG Interpretation #2 Normal sinus rhythm, No acute ischemic changes, No STEMI Rate 123 Rhythm Tachycardia Radiography X-Ray Chest View 1 view Text/Dict Note IMPRESSION: 1. No focal consolidation. No other acute abnorm alities. Interpretation/Wet Read by Interpret - Radiolog ist Reviewed by ED physician Portions of this section were scribed by Orestes Christina her B. on 04/04/18 at 0214 Procedures SVT Treatment Time 0030 Procedure Performed by ED physician Consent/Timeout/Setup Verified correct patient, Informed consent provided, Consent from patient, Time-out performed, Oxygen administered, Pulse oximeter applied, panel monitor applied Adenosine IV Attempt # 1 Dose 6mg IVP, Successfu l, Patient in sinus tach Number of Attempts 1 Post-Procedure Complete relief, Tolerated proced ure well, Patient stable Portions of this section were scribed by Orestes Christina her B. on 04/04/18 at 0129 Re-Evaluation MDM Re-Evaluation/Progress #1 Time of Re-Eval 0207 Re-Eval Status Improved Plan Post Re-Eval Plan admit ED Course Medication(s) Ordered Medication(s) Ordered: Cardiovascular Drugs Sig/Igovanni Start time Last Medication Dose Route Stop Time Status Admin Adenosine 0 .STK-MED ONE 04/04 0050 DC 04/04 IV 0056 Diltiazem HCl 10 MG X1ED STA 04/04 0048 DC 03/14 3 IV 04/04 0049 0101 Diltiazem HCl 10 MG X1ED STA 04/04 0039 DC IV 04/04 0040 Central Nervous System Agents Sig/Giovanni Start time Last Medication Dose Route Stop Time Status Admin Acetaminophen 650 MG Q4H PRN PRN 04/04 0215 AC PO 04/05 0105 Electrolytic, Caloric, And Emily Sig/Giovanni Start time Last Medication Dose Route Stop Time Status Admin Sodium Chloride 500 ML ASDIR 04/04 0215 AC IV 05/04 0214 Sodium Chloride 1,000 ML X1ED STA 04/04 0040 D C 04/04 IV 04/04 0139 0055 Sodium Chloride 1,000 ML X1ED STA 04/04 0040 DC 04/04 IV 04/04 0139 0055 Eye, Ear, Nose And Throat (Een Sig/Giovanni Start time Last Medication Dose Route Stop Time Status Admin Sodium Chloride 10 ML ASDIR 04/04 0215 AC IV 05/04 0214 Gastrointestinal Drugs Sig/Giovanni Start time Last Medication Dose Route Stop Time Status Admin Ondansetron HCl 4 MG Q4H PRN PRN 04/04 0215 AC IV 04/05 0105 Consultation Consultation Referral/Consult Name Nany Ruiz MD [facility] Called Cardiology Requested Call Time 0207 Requested Call Date 04/04/18 Call Returned Routine. Portions of this section were scribed by Orestes Christina B. on 04/04/18 at 0214 Patient Discharge Departure Vital Signs/Condition Vital Signs First Documented: Result Date Time Pulse Ox 98 04/04 27 B/P 125/63 04/04 0028 B/P Mean 83 04/04 27 O2 Delivery Room air 04/04 27 Temp 36.7 04/048 Pulse 237 04/04 0028 Resp 20 04/04 0028 O2 Flow Rate 2.917718 04/04 0130 Last Documented: Result Date Time O2 Delivery Nasal cannula 04/04 204 O2 Flow Rate 2.085116 04/04 020 Pulse Ox 100 04/04 204 B/P 98/58 04/04 020 B/P Mean 71 04/04 204 Temp 36.7 04/04 0205 Pulse 98 04/04 0205 Resp 20 04/04 204 All vital signs available at the time of this en try have been reviewed. Condition Improved Clinical Impression Clinical Impression Primary Impression: SVT (supraventricular tachyc ardia) Disposition Decision Admit Admit Physician Name Erika Dixon MD Admit Physician Hospitalist Request Time 021 Request Date 04/04/18 )( Admission Accepts Yes )( Accepted Time 210 )( Accepted Date 04/04/18 Call Information will see patient, agrees with eval, agrees with plan Discharge/Care Plan Counseled Regarding Diagnosi s, Lab results, Imaging studies, Need for admission Admit Note I have spoken with the patie nt and/or caregivers. I have explained the patient's condition, diagnoses and ha atment plan based on the information available to me at this time. I have answered the patient's and/ or caregiver's questions and addressed any concerns. The patient and/or careg devin have as good an understanding of the patient 's diagnosis, condition and treatment plan as can be expected at this point. The patient has been stabilized within the capability of the emergency department. The patient wi ll be transported for further care and management or will be moved to an observation or inpatient service. I have communicated with the staff or medical p ractitioner taking over this patient's care. Quality Measures BP F/U for HTN Referred for BP f/u < 4wk, F/u wi th PCP/other doc Smoking Cessation Screened, non user Tobacco Screening/Cessation 18 years or older, D enies tobacco use Supervising Physician Note Scribe Statement Christal Christina, 04/04/1858, scribing for and i n the presence of Dr. Swenson. Signed By: Christal Christina, 04/04/1858 Provider Scribed Statement I personally performed the s ervices described in this documentation and reviewed the documentation that was dictated to the scrib e(s) in my presence, and it accurately records my words and actions. Me trina Swenson, 04/04/18 Portions of this section were scribed by Orestes Christina on 04/04/18 at 0214 Electronically Signed by Maryse Swenson MD on at 2809 RPT #:[id number] END OF REPORT
[2022-08-18 08:36] LABS: Absolute Lymphocytes (CBC) 1.9 K/uL (0.7-4.9); Hematocrit 40.4 % (36.0-45.0); Lymphocytes % 44.7 % (15.3-44.8); MCV 87.2 fL (80-100); MPV 7.3 fL (7.6-11.3); RBC Red Blood Cell Count 4.63 M/uL (3.86-4.86)
[2022-08-18 08:47] LABS: BUN Blood Urea Nitrogen 19 mg/dL (7-18); Bicarbonate 30 mEq/L (21-32); Glomerular Filtration Rate 122 ml/min (=/>90); Glucose Level 107 mg/dL (74-106); Potassium 3.8 mEq/L (3.5-5.1); Sodium Level 140 mEq/L (136-145)
[2022-08-18 08:49] LABS: Troponin High Sensitivity < 3.0 pg/mL (<58.9)
--- NOTE | 2022-08-18 09:08 | RAD REPORT ---
EXAM DESCRIPTION: Aisha Single View08/18/2022 8:54 am CLINICAL HISTORY: CHEST PAIN COMPARISON: No comparisonsNo comparisons TECHNIQUE: Portable AP view of the chest. FINDINGS: The lungs are clear. No pneumothorax or effusion. The cardiomediastinal contours are unre markable. IMPRESSION: No acute cardiopulmonary process.
--- NOTE | 2022-08-18 09:10 | ER ---
Nurse's Notes [facility] Name: Lenore Cabral Age: 31 yrs Sex: Female : 1990 Arrival Date: 08/18/2022 Time: 08:10 Bed 15 Private MD: Diagnosis: Syncope Near Presentation: 08/18 08:08 Chief complaint: EMS states: patient with dizziness and feeling like was going to "pass db out" while at work. Per EMS patient was Omar on scene. patient has recent weight loss surgery. Glucose 94. Coronavirus screen: Vaccine status: Patient reports receiving the 2nd dose of the covid vaccine. Client denies travel out of the [place] in the last 14 days. At this time, the client does not indicate any symptoms associated with coronavirus-19. Ebola Screen: Patient negative for fever greater than or equal to 101.5 degrees Fahrenheit, and additional compatible Ebola Virus Disease symptoms Patient denies exposure to infectious person. Patient denies travel to an Ebola-affected area in the 21 days before illness onset. No symptoms or risks identified at this time. Initial Sepsis Screen: Does the patient meet any 2 criteria? No. Patient's initial sepsis screen is negative. Does the patient have a suspected source of infection? No. Patient's initial sepsis screen is negative. Risk Assessment: Do you want to hurt yourself or someone else? Patient reports no desire to harm self or others. Onset of symptoms was August 18, 2022. 08:08 Method Of Arrival: EMS: [facility] db 08:08 Acuity: EDWARDO 2 db Triage Assessment: 08:15 General: Appears in no apparent distress. comfortable, Behavior is cooperative, db anxious. Pain: Denies pain. Neuro: Level of Consciousness is awake, alert, obeys commands, Oriented to person, place, time, situation, Reports dizziness, since 1 hour. Cardiovascular: Capillary refill < 3 seconds Rhythm is regular. Respiratory: Airway is patent Respiratory effort is even, unlabored, Respiratory pattern is regular, symmetrical. 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 - Social history:: Smoking status: Patient denies any tobacco usage or history of. Screenin:18 [facility] ED Fall Risk Assessment (Adult) History of falling in the last 3 months, db including since admission No falls in past 3 months (0 pts) Confusion or Disorientation No (0 pts) Intoxicated or Sedated No (0 pts) Impaired Gait No (0 pts) Mobility Assist Device Used No (0 pt) Altered Elimination No (0 pt) Score/Fall Risk Level 0 - 2 = Low Risk Oriented to surroundings, Maintained a safe environment. Abuse screen: Denies threats or abuse. Denies injuries from another. Nutritional screening: No deficits noted. Tuberculosis screening: No symptoms or risk factors identified. Assessment: 08:18 Reassessment: Patient appears in no apparent distress at this time. Patient and/or db family updated on plan of care and expected duration. Pain level reassessed. Patient is alert, oriented x 3, equal unlabored respirations, skin warm/dry/pink. see triage for initial assessment. Neuro: Reports dizziness. Cardiovascular: Reports palpitations. 08:30 Reassessment: Patient appears in no apparent distress at this time. Patient and/or db family updated on plan of care and expected duration. Pain level reassessed. Patient is alert, oriented x 3, equal unlabored respirations, skin warm/dry/pink. Neuro: Level of Consciousness is awake, alert, obeys commands, Oriented to person, place, time, situation. Cardiovascular: Capillary refill < 3 seconds. 08:46 Reassessment: Patient appears in no apparent distress at this time. patient is db ambulatory to restroom. 09:53 Reassessment: Patient appears in no apparent distress at this time. Patient and/or db family updated on plan of care and expected duration. Pain level reassessed. Patient is alert, oriented x 3, equal unlabored respirations, skin warm/dry/pink. General: Appears in no apparent distress. comfortable, Behavior is calm, cooperative. Cardiovascular: Rhythm is sinus rhythm. Respiratory: Airway is patent Respiratory effort is even, unlabored, Respiratory pattern is regular, symmetrical. Vital Signs: 08:08 BP 116 / 88; Pulse 75; Resp 18; Temp 98.6(O); Pulse Ox 97% ; Weight 89.81 kg; Height 5 db ft. 6 in. ; 08:30 BP 111 / 79; Pulse 62; Resp 14; Pulse Ox 100% on R/A; db 09:30 BP 106 / 60; Pulse 65; Resp 16; Pulse Ox 100% on R/A; db 08:08 Body Mass Index 31.96 (89.81 kg, 167.64 cm) db Vitals: 08:19 Cardiac Rhythm Assessment Regular Sinus rhythm. db ED Course: 08:12 Patient arrived in ED. ss 08:12 Luis E Ziegler MD is Attending Physician. bs3 08:12 Renetta Elliott, RN is Primary Nurse. db 08:15 Triage completed. db 08:18 Arm band placed on Patient placed in an exam room. db 08:18 Patient has correct armband on for positive identification. Bed in low position. Call db light in reach. Side rails up X2. Client placed on continuous cardiac and pulse oximetry monitoring. NIBP monitoring applied. 08:20 EKG done, by ED staff, reviewed by Luis E Ziegler MD. jw7 08:26 Initial lab(s) drawn, by ne, sent to lab. Inserted saline lock: 22 gauge in left iw antecubital area, using aseptic technique. Blood collected. 08:56 XRAY Chest (1 view) In Process Unspecified. EDMS 09:09 Carlos Zhang MD is Referral Physician. bs3 09:58 No provider procedures requiring assistance completed. IV discontinued, intact, db bleeding controlled, No redness/swelling at site. Administered Medications: No medications were administered Medication: 09:58 VIS not applicable for this client. db Point of Care Testing: Blood Glucose: 09:58 Blood Glucose: 94 mg/dL; db Ranges: Outcome: 09:10 Discharge ordered by . bs3 09:58 Discharged to home ambulatory, with family. db 09:58 Condition: stable 09:58 Discharge instructions given to patient, family, Instructed on discharge instructions, follow up and referral plans. 09:59 Patient left the ED. db Signatures: Dispatcher [employer] EDMS Cha Anderson, Michelle Khoury RN, RN RN ss Waits, Jodi jw7 Luis E Ziegler MD MD bs3 Renetta Elliott, DEBRA RICHARDSON db
--- NOTE | 2022-08-18 09:10 | EDPHYS ---
Physician Documentation [facility] Name: Lenore Cabral Age: 31 yrs Sex: Female : 1990 Arrival Date: 08/18/2022 Time: 08:10 Bed 15 Private MD: ED Physician Luis E Ziegler HPI: 08/18 08:13 This 31 yrs old Female presents to ER via Unassigned with complaints of bs3 Presyncope. 08:13 31-year-old female history of SVT status post ablation 2018 status post bariatric bs3 surgery several months ago presents with presyncope she was at work when she got lightheaded dizzy nauseous developed chest pain and then felt like she was going to pass out per EMS she was bradycardic with them but that resolved after a second she now has no complaints she notes that she had a protein shake and coffee this morning denies any presyncopal headache chest pain shortness of breath abdominal pain she is currently menstruating. 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 - Social history:: Smoking status: Patient denies any tobacco usage or history of. ROS: 08:13 Constitutional: Negative for fever, chills bs3 08:13 All other systems are negative. Exam: 08:13 Constitutional: This is a well developed, well nourished patient who is awake, alert, bs3 and in no acute distress. Head/Face: Normocephalic, atraumatic. Eyes: Pupils equal round and reactive to light, extra-ocular motions intact. Lids and lashes normal. ENT: mmm, no posterior phyarngeal erythema Neck: Trachea midline, no thyromegaly, no neck stiffness Chest/axilla: Normal chest wall appearance and motion. Nontender with no deformity. No lesions are appreciated. Cardiovascular: Regular rate and rhythm with a normal S1 and S2. symmetric pulses in upper extremities Respiratory: Lungs have equal breath sounds bilaterally, clear to auscultation, no respiratory distress Abdomen/GI: Soft, non-tender, no rebound or guarding MS/ Extremity: Pulses equal, no cyanosis. Neurovascular intact. Full, normal range of motion. Neuro: Awake and alert, GCS 15, oriented to person, place, time, and situation. Cranial nerves II-XII grossly intact. Motor strength 5/5 in all extremities. Sensory grossly intact. Psych: Awake, alert, with orientation to person, place and time. Behavior, mood, and affect are within normal limits. 08:[address] ELEVATION OR DEPRESSION qtc 454, no brugada, hocm, wpw, prolonged qt bs3 Vital Signs: 08:08 BP 116 / 88; Pulse 75; Resp 18; Temp 98.6(O); Pulse Ox 97% ; Weight 89.81 kg; Height 5 db ft. 6 in. ; 08:30 BP 111 / 79; Pulse 62; Resp 14; Pulse Ox 100% on R/A; db 09:30 BP 106 / 60; Pulse 65; Resp 16; Pulse Ox 100% on R/A; db 08:08 Body Mass Index 31.96 (89.81 kg, 167.64 cm) db MDM: 08:12 Patient medically screened. bs3 08:13 Data reviewed: vital signs, nurses notes. ED course: Patient with presyncopal episode bs3 earlier today now resolved she is well-appearing here will rule out electrolyte abnormality will rule out anemia we will place on cobbler sole and reassess . 09:09 ED course: X-ray negative for acute pathology as interpreted by myself Telemetry bs3 evaluated at 909 normal sinus rhythm at 68 Patient remained asymptomatic here she had no episodes of bradycardia here no malignant arrhythmia observed given her age and risk factors will discharge home. 08/18 08:13 Order name: Basic Metabolic Panel; Complete Time: 09:08 bs3 08 08:13 Order name: CBC with Diff; Complete Time: 09:08 bs3 08/18 08:13 Order name: Troponin HS; Complete Time: 09:08 bs3 08/18 08:13 Order name: Test, Urine; Complete Time: 09:08 bs3 08/18 08:13 Order name: XRAY Chest (1 view) bs3 08/18 08:13 Order name: EKG; Complete Time: 08:13 bs3 08/18 08:13 Order name: Cardiac monitoring; Complete Time: 08:19 bs3 08/18 08:13 Order name: EKG - Nurse/Tech; Complete Time: 08:19 bs3 08/18 08:13 Order name: IV Saline Lock; Complete Time: 08:26 bs3 08/18 08:13 Order name: Labs collected and sent; Complete Time: 08:26 bs3 08/18 08:13 Order name: O2 Per Protocol; Complete Time: 08:19 bs3 08/18 08:13 Order name: O2 Sat Monitoring; Complete Time: 08:19 bs3 Administered Medications: No medications were administered Point of Care Testing: Blood Glucose: 09:58 Blood Glucose: 94 mg/dL; db Ranges: Critical Glucose Levels:Adult <50 mg/dl or >400 mg/dl <40 mg/dl or >180 mg/dl Disposition Summary: 08/18/22 09:10 Discharge Ordered Location: Home bs3 Problem: new bs3 Symptoms: have improved bs3 Condition: Stable bs3 Diagnosis - Syncope Near bs3 Followup: bs3 - With: - When: 1 week - Reason: Recheck today's complaints Discharge Instructions: - Discharge Summary Sheet bs3 - Near-Syncope bs3 Forms: - Medication Reconciliation Form bs3 - Thank You Letter bs3 - Antibiotic Education bs3 - Prescription Opioid Use bs3 Signatures: Dispatcher [employer] Luis E Sims MD MD bs3 Renetta Elliott RN RN db Corrections: (The following items were deleted from the chart) 08:24 08:[address] ELEVATION OR DEPRESSION qtc 454 bs3 bs3
[2022-08-18 10:18] VITALS: O2SAT 100
[2022-08-18 10:24] VITALS: BP 106/60
--- NOTE | 2022-08-18 13:26 | EKG ---
Test Date: 2022-08-18 Test Time: 08:17:22 Supervisor [employer] Processing: CURLY MEASUREMENT RESULTS: Intervals: Rate: 77 NE: 162 QRSD: 80 QT: 402 QTc: 454 [place]: P: 40 NE: 162 QRS: 66 T: 22 INTERPRETIVE STATEMENTS: Normal sinus rhythm Low voltage QRS Borderline ECG No previous ECG available for comparison Electronically Signed On 08-18-22 13:25:02 CDT by Carlos Zhang
== END 2022-08-18 09:59 | disposition home or self-care (01) ==
LOC: ER 08:10
DX: R55 Syncope and collapse (principal); I47.1 Supraventricular tachycardia; Z98.84 Bariatric surgery status
CPT/HCPCS: 36415; 71045; 80048; 81025; 84484; 85025; 93005; 99284